=== PATIENT | female | born 1940 | race Caucasian/White ===

== ENCOUNTER 2018-11-03 18:56 | Emergency (ER) | payer OTHER ==
--- NOTE | 2018-11-03 20:20 | RAD REPORT ---
EXAM DESCRIPTION: RAD - Foot Left 3 View - 11/03/2018 8:07 pm CLINICAL HISTORY: Pain;Numbness/tingling COMPARISON: No comparisons FINDINGS: No fractures appreciated. Prominent posterior calcaneal spur.
--- NOTE | 2018-11-03 20:37 | EDPHYS ---
Physician Documentation [facility] Name: Beth López Age: 77 yrs Sex: Female : 1940 Arrival Date: 11/03/2018 Time: 18:59 Bed 5 Private MD: ED Physician Anirudh Dee HPI: 11/03 19:35 This 77 yrs old Female presents to ER via Wheelchair with complaints of Foot rn Injury. 19:35 The patient presents with an injury, pain. The complaints affect the left foot. Onset: rn The symptoms/episode began/occurred just prior to arrival. Modifying factors: The symptoms are alleviated by nothing, the symptoms are aggravated by nothing. Severity of symptoms: At their worst the symptoms were mild, in the emergency department the symptoms are unchanged. The patient has not experienced similar symptoms in the past. The patient has not recently seen a physician. Reports using wheelbarrow, tipped over, wearing sandals, landed on left foot, no other injury, + mild numbness/tingling/pressure to midfoot and toes.. Historical: - Allergies: 19:19 No Known Allergies; ak1 - Home Meds: 19:19 Lisinopril 12.5mg Oral 1 tab once daily [Active]; aspirin 81 mg Oral TbEC [Active]; ak1 pantoprazole 40 mg oral TbEC 1 tab once daily [Active]; atorvastatin 10 mg oral tab 1 tab once daily [Active]; - PMHx: 19:19 Hyperlipidemia; Hypertension; ak1 - PSHx: 19:19 Appendectomy; Cholecystectomy; Hernia repair; Knee surgery; ak1 - Immunization history:: Adult Immunizations unknown. - Social history:: Smoking status: Patient/guardian denies using tobacco. - Ebola Screening: : No symptoms or risks identified at this time. - Family history:: not pertinent. - Hospitalizations: : No recent hospitalization is reported. ROS: 19:35 Constitutional: Negative for fever, chills, and weight loss, MS/Extremity: + injury and rn pain to left foot Skin: + bruising to left foot Neuro: + tingling let foot Exam: 19:35 Constitutional: This is a well developed, well nourished patient who is awake, alert, rn and in no acute distress. Skin: + ecchymosis, linear, acroos left dorsal mid-foot MS/ Extremity: Pulses equal, no cyanosis. Able to wiggle toes, + mild mid-foot swelling. No tenderness at ankle or proximally. Vital Signs: 19:16 BP 134 / 75; Pulse 73; Resp 18; Temp 98; Pulse Ox 97% on R/A; Weight 79.38 kg (R); ak1 Height 5 ft. 7 in. (170.18 cm) (R); Pain 0/10; 20:45 BP 131 / 77; Pulse 75; Resp 17 S; Pulse Ox 97% on R/A; cc3 19:16 Body Mass Index 27.41 (79.38 kg, 170.18 cm) ak1 MDM: 19:23 Patient medically screened. rn 20:35 Differential diagnosis: fracture, sprain. Data reviewed: vital signs, nurses notes, rn radiologic studies, plain films, and as a result, I will discharge patient. Counseling: I had a detailed discussion with the patient and/or guardian regarding: the historical points, exam findings, and any diagnostic results supporting the discharge/admit diagnosis, radiology results, the need for outpatient follow up, to return to the emergency department if symptoms worsen or persist or if there are any questions or concerns that arise at home. Special discussion: I discussed with the patient/guardian in detail that at this point there is no indication for admission to the hospital. It is understood, however, that if the symptoms persist or worsen the patient needs to return immediately for re-evaluation. 11/03 19:26 Order name: XRAY Foot LEFT 3 View; Complete Time: 20:21 rn Administered Medications: No medications were administered Disposition: 11/03/18 20:36 Discharged to Home. Impression: Contusion of left foot. - Condition is Stable. - Discharge Instructions: Foot Contusion. - Medication Reconciliation Form, Thank You Letter, Antibiotic Education, Prescription Opioid Use form. - Follow up: Private Physician; When: As needed; Reason: Recheck today's complaints, Re-evaluation by your physician. - Problem is new. - Symptoms have improved. Signatures: Dispatcher [employer] EDMS Anirudh Dee MD MD rn Krenek, Amber, RN RN ak1 Nica Irby cc3 Corrections: (The following items were deleted from the chart) 21:05 20:36 11/03/2018 20:36 Discharged to Home. Impression: Contusion of left foot. cc3 Condition is Stable. Forms are Medication Reconciliation Form, Thank You Letter, Antibiotic Education, Prescription Opioid Use. Follow up: Private Physician; When: As needed; Reason: Recheck today's complaints, Re-evaluation by your physician. Problem is new. Symptoms have improved. rn
--- NOTE | 2018-11-03 20:37 | ER ---
Nurse's Notes [facility] Name: Beth López Age: 77 yrs Sex: Female : 1940 Arrival Date: 11/03/2018 Time: 18:59 Bed 5 Private MD: Diagnosis: Contusion of left foot Presentation: 11/03 19:16 Presenting complaint: Patient states: left foot numbness. pain after wheelbarrow with ak1 garden soil fell on left foot. Transition of care: patient was not received from another setting of care. Onset of symptoms was November 03, 2018. Risk Assessment: Do you want to hurt yourself or someone else? Patient reports no desire to harm self or others. Initial Sepsis Screen: Does the patient meet any 2 criteria? No. Patient's initial sepsis screen is negative. Does the patient have a suspected source of infection? No. Patient's initial sepsis screen is negative. Care prior to arrival: None. 19:16 Method Of Arrival: Wheelchair ak1 19:16 Acuity: TJ 4 ak1 Triage Assessment: 19:19 General: Appears in no apparent distress. Behavior is calm, cooperative. Pain: ak1 Complains of pain in left foot. 19:26 Musculoskeletal: Range of motion: limited in left foot. Injury Description: Bruise cc3 sustained to left foot. Historical: - Allergies: 19:19 No Known Allergies; ak1 - Home Meds: 19:19 Lisinopril 12.5mg Oral 1 tab once daily [Active]; aspirin 81 mg Oral TbEC [Active]; ak1 pantoprazole 40 mg oral TbEC 1 tab once daily [Active]; atorvastatin 10 mg oral tab 1 tab once daily [Active]; - PMHx: 19:19 Hyperlipidemia; Hypertension; ak1 - PSHx: 19:19 Appendectomy; Cholecystectomy; Hernia repair; Knee surgery; ak1 - Immunization history:: Adult Immunizations unknown. - Social history:: Smoking status: Patient/guardian denies using tobacco. - Ebola Screening: : No symptoms or risks identified at this time. - Family history:: not pertinent. - Hospitalizations: : No recent hospitalization is reported. Screenin:26 Abuse screen: Denies threats or abuse. Denies injuries from another. Nutritional cc3 screening: No deficits noted. Tuberculosis screening: No symptoms or risk factors identified. Fall Risk Ambulatory Aid- None/Bed Rest/Nurse Assist (0 pts). Gait- Normal/Bed Rest/Wheelchair (0 pts) Mental Status- Oriented to own ability (0 pts). Assessment: 19:26 Reassessment: Patient appears in no apparent distress at this time. Patient and/or cc3 family updated on plan of care and expected duration. Pain level reassessed. Patient is alert, oriented x 3, equal unlabored respirations, skin warm/dry/pink. 20:30 Reassessment: Patient appears in no apparent distress at this time. Patient and/or cc3 family updated on plan of care and expected duration. Pain level reassessed. Patient is alert, oriented x 3, equal unlabored respirations, skin warm/dry/pink. 21:00 Reassessment: Patient appears in no apparent distress at this time. Patient and/or cc3 family updated on plan of care and expected duration. Pain level reassessed. Patient is alert, oriented x 3, equal unlabored respirations, skin warm/dry/pink. Dr. Dee discharged the patient home, no prescription given. No IV cannula in situ. Patient left ER vitally stable by wheelchair escorted by me and the patient's family. Vital Signs: 19:16 BP 134 / 75; Pulse 73; Resp 18; Temp 98; Pulse Ox 97% on R/A; Weight 79.38 kg (R); ak1 Height 5 ft. 7 in. (170.18 cm) (R); Pain 0/10; 20:45 BP 131 / 77; Pulse 75; Resp 17 S; Pulse Ox 97% on R/A; cc3 19:16 Body Mass Index 27.41 (79.38 kg, 170.18 cm) ak1 ED Course: 18:59 Patient arrived in ED. as 19:17 Triage completed. ak1 19:19 Arm band placed on Patient placed in an exam room, Patient notified of wait time. ak1 19:22 Anirudh Dee MD is Attending Physician. rn 19:26 Nica Irby is Primary Nurse. cc3 19:26 Patient has correct armband on for positive identification. Bed in low position. Call cc3 light in reach. Side rails up X 1. Pulse ox on. NIBP on. 20:08 XRAY Foot LEFT 3 View In Process Unspecified. EDMS 21:00 No provider procedures requiring assistance completed. Patient did not have IV access cc3 during this emergency room visit. Administered Medications: No medications were administered Outcome: 20:36 Discharge ordered by . rn 21:00 Discharged to home via wheelchair, with family. cc3 21:00 Condition: stable 21:00 Discharge instructions given to patient, family, Instructed on discharge instructions, follow up and referral plans. Demonstrated understanding of instructions, follow-up care. 21:05 Patient left the ED. cc3 Signatures: Dispatcher [employer] EDMS Geraldine Urbano Roman, MD MD rn Krenek, Amber, RN RN ak1 Nica Irby cc3
== END 2018-11-03 21:05 | disposition home or self-care (01) ==
LOC: ER 18:56
DX: S90.32XA Contusion of left foot, initial encounter (principal); W20.8XXA Other cause of strike by thrown, projected or falling object, initial encounter; Y93.H2 Activity, gardening and landscaping; Y92.007 Garden or yard of unspecified non-institutional (private) residence as the place of occurrence of the external cause; I10 Essential (primary) hypertension
CPT/HCPCS: 99283

== ENCOUNTER 2020-03-06 05:24 | Emergency (ER) | payer OTHER ==
--- OUTSIDE RECORDS SUMMARY | 2020-03-06 05:27 | XMS REPORT | Clinical Summary ---
:1940 Author Organization [facility] Address [address] [place] [address] Care Team Providers Name Role Phone Elie Turpin MD Primary Care Provider Allergies No Known Allergies Medications Medication Sig Dispensed Refills Start Date End Date Status lisinopril-hydrochloroth TK 1 T PO QD 1 10/06/2016 Active iazide (PRINZIDE,ZESTORETIC) 20-12.5 mg per tablet atorvastatin (LIPITOR) TK 1 T PO QD 2 10/06/2016 Active 10 MG tablet pantoprazole (PROTONIX) TK 1 T PO QD 3 10/08/2016 Active 40 MG EC tablet meclizine (ANTIVERT) 25 TK 1 T PO TID 1 09/14/2016 Active mg tablet PRN aspirin (ECOTRIN) 81 MG Take 81 mg by 0 Active enteric coated tablet mouth daily. Active Problems No known active problems Family History Medical History Relation Name Comments Cancer Brother Heart attack Brother Heart disease Father Hypertension Mother Relation Name Status Comments Brother Father Alive Mother Alive Social History Tobacco Use Types Packs/Day Years Used Date Never Assessed Sex Assigned at Date Recorded Not on file Job Start Date Occupation Industry Not on file Not on file Not on file Travel History Travel Start Travel End No recent travel history available. 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
[2020-03-06 06:16] LABS: Absolute Lymphocytes (CBC) 0.7 K/uL (0.7-4.9); Basophils % 0.7 % (0-1.3); Hematocrit 37.7 % (36.0-45.0); Lymphocytes % 22.2 % (15.3-44.8); MPV 8.3 fL (7.6-11.3); Protime INR 1.01; RBC Red Blood Cell Count 4.39 M/uL (3.86-4.86)
[2020-03-06 06:44] LABS: ALT/SGPT 22 U/L (12-78); AST/SGOT 35 U/L (15-37); Albumin 3.5 g/dL (3.4-5.0); Alkaline Phosphatase 110 U/L (45-117); BUN Blood Urea Nitrogen 20 mg/dL (7-18); Bicarbonate 22 mmol/L (21-32); Bilirubin Direct 0.1 mg/dL (0-0.2); Bilirubin Total 0.4 mg/dL (0.2-1.0); Glucose Level 107 mg/dL (74-106); Magnesium 1.8 mg/dL (1.8-2.4); NT PRO-BNP 348 pg/mL (<450); Protein, Total 7.7 g/dL (6.4-8.2); Sodium Level 143 mmol/L (136-145); Troponin (Emerg Dept Use Only) < 0.02 ng/mL (0.0-0.045)
[2020-03-06 06:51] LABS: Potassium 2.9 mmol/L (3.5-5.1)
[2020-03-06] MEDS ORDERED: POTASSIUM CL SA 10 MEQ TAB PO ONE (07:12)
[2020-03-06] MEDS ORDERED: NA CHLORIDE 0.9% 1,000 ML ONE (07:12)
--- NOTE | 2020-03-06 10:17 | ER ---
Nurse's Notes [facility] Name: Beth López Age: 79 yrs Sex: Female : 1940 Arrival Date: 03/06/2020 Time: 05:25 Bed 7 Private MD: Diagnosis: Dehydration;Hypokalemia;Palpitations;Acute upper respiratory infection, unspecified Presentation: 03/06 05:39 Chief complaint: Patient states: i was tested for COVID last Saturday at [place] and mg2 not resulted yet. I was having fever, palpitation for few seconds, cough and shortness of breath. i also got lightheaded yesterday. Coronavirus screen: Patient reports a cough. Patient reports shortness of breath or difficulty breathing. Patient reports a measured and/or subjective temperature greater than 100.4F. Patient denies travel on a cruise ship or to a country the [facility] currently lists as an affected area. Patient denies contact with known and/or suspected case of COVID-19. Patient instructed to continue to wear a mask when interacting with others. Patient moved to private room, placed in contact and droplet isolation with eye protection until further assessment. Ebola Screen: No symptoms or risks identified at this time. Initial Sepsis Screen: Does the patient meet any 2 criteria? No. Patient's initial sepsis screen is negative. Does the patient have a suspected source of infection? No. Patient's initial sepsis screen is negative. Risk Assessment: Do you want to hurt yourself or someone else? Patient reports no desire to harm self or others. Onset of symptoms was February 2020. 05:39 Method Of Arrival: Wheelchair mg2 05:39 Acuity: TJ 3 mg2 05:40 Ebola Screen: No symptoms or risks identified at this time. ea 05:41 Initial Sepsis Screen: Does the patient have a suspected source of infection?. ea Historical: - Allergies: 05:43 No Known Allergies; mg2 - Home Meds: 05:43 aspirin 81 mg Oral TbEC [Active]; atorvastatin 10 mg Oral tab 1 tab once daily mg2 [Active]; Lisinopril 12.5MG Oral 1 tab once daily [Active]; pantoprazole 40 mg Oral TbEC 1 tab once daily [Active]; - PMHx: 05:43 Hyperlipidemia; Hypertension; GERD; mg2 - Immunization history:: Adult Immunizations up to date. - Social history:: Smoking status: Patient denies any tobacco usage or history of. Screenin:40 Abuse screen: Denies threats or abuse. Nutritional screening: No deficits noted. ea Tuberculosis screening: No symptoms or risk factors identified. Fall Risk None identified. Assessment: 05:39 General: Appears in no apparent distress. Behavior is cooperative. Pain: Denies pain. ea Neuro: Level of Consciousness is awake, alert, obeys commands, Oriented to person, place, time, situation. Cardiovascular: Patient's skin is warm and dry. Respiratory: Airway is patent Respiratory effort is even, unlabored, Respiratory pattern is regular, symmetrical. Derm: Skin is pink, warm \T\ dry. Musculoskeletal: Circulation, motion, and sensation intact. 06:22 Reassessment: Patient and/or family updated on plan of care and expected duration. Pain ea level reassessed. Patient is alert, oriented x 3, equal unlabored respirations, skin warm/dry/pink. 07:00 Reassessment: RECD REPORT FROM LEANNE PEREZ. 79YO WF P/W PALPITATIONS AND R/O COVID. ALL bp CURRENT ORDERS COMPLETE. 07:31 Reassessment: Patient appears in no apparent distress at this time. Patient and/or jl7 family updated on plan of care and expected duration. Pain level reassessed. Patient is alert, oriented x 3, equal unlabored respirations, skin warm/dry/pink. Patient denies pain at this time. Patient states feeling better. Patient states symptoms have improved. 08:30 Reassessment: Patient appears in no apparent distress at this time. No changes from 7 previously documented assessment. Patient and/or family updated on plan of care and expected duration. Pain level reassessed. Patient is alert, oriented x 3, equal unlabored respirations, skin warm/dry/pink. 09:30 Reassessment: Patient appears in no apparent distress at this time. No changes from jl7 previously documented assessment. Patient and/or family updated on plan of care and expected duration. Pain level reassessed. Patient is alert, oriented x 3, equal unlabored respirations, skin warm/dry/pink. Vital Signs: 05:39 BP 144 / 98; Pulse 91; Resp 18; Temp 98; Pulse Ox 96% on R/A; Weight 81.65 kg; Height 5 mg2 ft. 7 in. (170.18 cm); 06:22 BP 114 / 73; Pulse 77; Resp 18; Pulse Ox 92% ; ea 07:30 BP 108 / 64; Pulse 67; Resp 17; Pulse Ox 97% ; jl7 08:15 BP 111 / 65; Pulse 67; Resp 15; Pulse Ox 100% ; jl7 09:00 BP 111 / 60; Pulse 61; Resp 16; Pulse Ox 99% ; jl7 10:02 BP 118 / 64; Pulse 61; Resp 15; Pulse Ox 100% ; jl7 05:39 Body Mass Index 28.19 (81.65 kg, 170.18 cm) mg2 ED Course: 05:25 Patient arrived in ED. ds1 05:39 Christopher Menchaca, RN is Primary Nurse. mg2 05:40 Patient has correct armband on for positive identification. Placed in gown. Bed in low ea position. Call light in reach. Side rails up X2. school lunch monitor on. Pulse ox on. NIBP on. 05:41 Triage completed. mg2 05:41 Arm band placed on right wrist. Patient placed in an exam room, on a stretcher, on ea pulse oximetry. 05:42 No provider procedures requiring assistance completed. mg2 06:01 Rome Sol NP is PHCP. pm1 06:01 Donald Baptiste MD is Attending Physician. pm1 06:32 XRAY Chest (1 view) In Process Unspecified. EDMS 06:51 Notified Nurse Practitioner and/or Physician Termite Exterminator Helper of a critical lab result(s), K lp1 2.9. 07:23 Primary Nurse role handed off by Christopher Menchaca RN jl7 07:23 Venu Gonzalez RN is Primary Nurse. jl7 07:23 Report received from ANA White. jl7 10:27 IV discontinued, intact, bleeding controlled, No redness/swelling at site. Pressure jl7 dressing applied. Administered Medications: 07:06 Drug: NS 0.9% 1000 ml Route: IV; Rate: 1000 ml; Site: right antecubital; ea 07:06 Drug: Potassium Chloride 40 mEq Route: PO; ea 07:21 Follow up: Response: No adverse reaction jl7 07:10 CANCELLED (Physician Discretion): Potassium Chloride 10 mEq IV at calculated rate once; pm1 administer over 1-2 hours 07:15 Drug: Potassium Chloride 20 mEq Route: IV; Rate: calculated rate; Site: right [facility] antecubital; Outcome: 10:16 Discharge ordered by . pm1 10:27 Discharged to home ambulatory. jl7 10:27 Condition: stable 10:27 Discharge instructions given to patient, Instructed on discharge instructions, follow up and referral plans. Demonstrated understanding of instructions, follow-up care. 10:28 Patient left the ED. jl7 Signatures: Dispatcher [employer] EDCT Sommer Gutierrez ds1 Maira Lua RN RN lp1 Rome Sol, ROSITA KITCHENHAND pm1 Venu Gonzalez RN RN jl7 Myla Conley RN RN ea Peltier, Brian, RN RN Christopher Mcknight RN RN mg2
--- NOTE | 2020-03-06 10:17 | EDPHYS ---
Physician Documentation [facility] Name: Beth López Age: 79 yrs Sex: Female : 1940 Arrival Date: 03/06/2020 Time: 05:25 Bed 7 Private MD: ED Physician Donald Baptiste HPI: 03/06 06:28 This 79 yrs old Female presents to ER via Wheelchair with complaints of R/O pm1 Covid. 06:28 The patient presents with a history of heart racing. Context: The symptoms occur at pm1 rest. Onset: The symptoms/episode began/occurred 3 day(s) ago. Duration: The patient or guardian reports a single episode, that lasted 1 minute(s). Modifying factors: The symptoms are aggravated by nothing. The symptoms are alleviated by nothing. Associated signs and symptoms: Pertinent positives: cough, fever, SOB, Pertinent negatives: chest pain, nausea, vomiting, diarrhea. Severity of symptoms: in the emergency department the symptoms have improved Pain is currently a 0 / 10. Patient presents today with complaints of cough, fever, palpitations, and shortness of breath. Cough and fever started 3 days ago. Palpitations and shortness of breath onset yesterday that lasted for 1 minute. She got swabbed for covid-19 from [place] on Saturday and is pending results. Historical: - Allergies: 05:43 No Known Allergies; mg2 - Home Meds: 05:43 aspirin 81 mg Oral TbEC [Active]; atorvastatin 10 mg Oral tab 1 tab once daily mg2 [Active]; Lisinopril 12.5MG Oral 1 tab once daily [Active]; pantoprazole 40 mg Oral TbEC 1 tab once daily [Active]; - PMHx: 05:43 Hyperlipidemia; Hypertension; GERD; mg2 - Immunization history:: Adult Immunizations up to date. - Social history:: Smoking status: Patient denies any tobacco usage or history of. ROS: 06:28 Constitutional: Negative for fever, chills, and weight loss, ENT: Negative for injury, pm1 pain, and discharge, Neck: Negative for injury, pain, and swelling. 06:28 Abdomen/GI: Negative for abdominal pain, nausea, vomiting, diarrhea, and constipation, Back: Negative for injury and pain, MS/Extremity: Negative for injury and deformity, Skin: Negative for injury, rash, and discoloration, Neuro: Negative for headache, weakness, numbness, tingling, and seizure. 06:28 Cardiovascular: Positive for palpitations, Negative for chest pain, edema. 06:28 Respiratory: Positive for cough, shortness of breath. 06:28 All other systems are negative. Exam: 06:28 Constitutional: This is a well developed, well nourished patient who is awake, alert, pm1 and in no acute distress. Head/Face: Normocephalic, atraumatic. Chest/axilla: Normal chest wall appearance and motion. Nontender with no deformity. No lesions are appreciated. 06:28 Back: No spinal tenderness. No costovertebral tenderness. Full range of motion. Skin: Warm, dry with normal turgor. Normal color with no rashes, no lesions, and no evidence of cellulitis. MS/ Extremity: Pulses equal, no cyanosis. Neurovascular intact. Full, normal range of motion. 06:28 Cardiovascular: Exam negative for acute changes, Rate: normal, Rhythm: regular, Pulses: no pulse deficits are appreciated. 06:28 Respiratory: Exam negative for acute changes, respiratory distress, shortness of breath, wheezing. 06:28 Abdomen/GI: Exam negative for acute changes, Inspection: abdomen appears normal, Palpation: abdomen is soft and non-tender, in all quadrants. 06:28 Neuro: Exam negative for acute changes, Orientation: is normal, Mentation: is normal, Motor: is normal, moves all fours. Vital Signs: 05:39 BP 144 / 98; Pulse 91; Resp 18; Temp 98; Pulse Ox 96% on R/A; Weight 81.65 kg; Height 5 mg2 ft. 7 in. (170.18 cm); 06:22 BP 114 / 73; Pulse 77; Resp 18; Pulse Ox 92% ; ea 07:30 BP 108 / 64; Pulse 67; Resp 17; Pulse Ox 97% ; jl7 08:15 BP 111 / 65; Pulse 67; Resp 15; Pulse Ox 100% ; jl7 09:00 BP 111 / 60; Pulse 61; Resp 16; Pulse Ox 99% ; jl7 10:02 BP 118 / 64; Pulse 61; Resp 15; Pulse Ox 100% ; jl7 05:39 Body Mass Index 28.19 (81.65 kg, 170.18 cm) mg2 MDM: 06:03 Patient medically screened. pm1 06:56 Data reviewed: vital signs. pm1 10:03 Counseling: I had a detailed discussion with the patient and/or guardian regarding: the pm1 historical points, exam findings, and any diagnostic results supporting the discharge/admit diagnosis, lab results, radiology results, the need for outpatient follow up, to return to the emergency department if symptoms worsen or persist or if there are any questions or concerns that arise at home. 03/06 05:46 Order name: Basic Metabolic Panel; Complete Time: 06:54 03/06 05:46 Order name: CBC with Diff; Complete Time: 06:33 03/06 05:46 Order name: LFT's; Complete Time: 06:54 03/06 05:46 Order name: Magnesium; Complete Time: 06:54 03/06 05:46 Order name: NT PRO-BNP; Complete Time: 06:54 03/06 05:46 Order name: PT-INR; Complete Time: 06:33 03/06 05:46 Order name: Troponin (emerg Dept Use Only); Complete Time: 06:54 03/06 05:46 Order name: XRAY Chest (1 view); Complete Time: 10:45 03/06 05:46 Order name: EKG; Complete Time: 05:47 03/06 05:57 Order name: Blood Culture* 4 03/06 05:46 Order name: Cardiac monitoring; Complete Time: 05:57 03/06 05:46 Order name: EKG - Nurse/Tech; Complete Time: 05:57 03/06 05:46 Order name: IV Saline Lock; Complete Time: 05:58 03/06 05:46 Order name: Labs collected and sent; Complete Time: 05:58 03/06 05:46 Order name: O2 Per Protocol; Complete Time: 05:53 03/06 05:46 Order name: O2 Sat Monitoring; Complete Time: 05:53 4 Administered Medications: 07:06 Drug: NS 0.9% 1000 ml Route: IV; Rate: 1000 ml; Site: right antecubital; ea 07:06 Drug: Potassium Chloride 40 mEq Route: PO; ea 07:21 Follow up: Response: No adverse reaction jl7 07:10 CANCELLED (Physician Discretion): Potassium Chloride 10 mEq IV at calculated rate once; pm1 administer over 1-2 hours 07:15 Drug: Potassium Chloride 20 mEq Route: IV; Rate: calculated rate; Site: right jl7 antecubital; Disposition: 03/07 06:05 Co-signature as Attending Physician, Donald Baptiste MD I agree with the assessment and tw4 plan of care. Disposition: 03/06/20 10:16 Discharged to Home. Impression: Palpitations, Dehydration, Hypokalemia, Acute upper respiratory infection, unspecified. - Condition is Stable. - Discharge Instructions: Dehydration, Elderly, Potassium Content of Foods, Palpitations, Hypokalemia, Rehydration, Elderly. - Medication Reconciliation Form, Thank You Letter, Antibiotic Education, Prescription Opioid Use form. - Follow up: Emergency Department; When: As needed; Reason: Worsening of condition. Follow up: Private Physician; When: 2 - 3 days; Reason: Recheck today's complaints, Continuance of care, Re-evaluation by your physician. - Problem is new. - Symptoms have improved. Signatures: Dispatcher [employer] EDMS [place] Sol, ROSITA TWENTY ONE DEALER pm1 Venu Gonzalez RN RN jl7 Myla Conley RN RN ea Wadley, Terrence, MD MD tw4 Christopher Menchaca RN RN mg2 Corrections: (The following items were deleted from the chart) 03/06 07:10 07:10 Potassium Chloride 10 mEq IV at calculated rate once; administer over 1-2 hours pm1 ordered. pm1 10:17 10:16 03/06/2020 10:16 Discharged to Home. Impression: Dehydration; Hypokalemia. pm1 Condition is Stable. Forms are Medication Reconciliation Form, Thank You Letter, Antibiotic Education, Prescription Opioid Use. Follow up: Emergency Department; When: As needed; Reason: Worsening of condition. Follow up: Private Physician; When: 2 - 3 days; Reason: Recheck today's complaints, Continuance of care, Re-evaluation by your physician. Problem is new. Symptoms have improved. pm1 10:28 10:17 03/06/2020 10:16 Discharged to Home. Impression: PalpitationsDehydration; jl7 Hypokalemia; Acute upper respiratory infection, unspecified. Condition is Stable. Discharge Instructions: Dehydration, Elderly, Potassium Content of Foods, Hypokalemia, Rehydration, Elderly. Forms are Medication Reconciliation Form, Thank You Letter, Antibiotic Education, Prescription Opioid Use. Follow up: Emergency Department; When: As needed; Reason: Worsening of condition. Follow up: Private Physician; When: 2 - 3 days; Reason: Recheck today's complaints, Continuance of care, Re-evaluation by your physician. Problem is new. Symptoms have improved. pm1
--- NOTE | 2020-03-06 10:35 | RAD REPORT ---
EXAM DESCRIPTION: Nicola Single View03/06/2020 6:31 am CLINICAL HISTORY: Chest pain COMPARISON: none FINDINGS: The lungs appear clear of acute infiltrate. The heart is normal size IMPRESSION: No acute abnormalities displayed
[2020-03-06 10:38] VITALS: TEMP 98
[2020-03-06 10:52] VITALS: BP 118/64; O2SAT 100
--- NOTE | 2020-03-07 05:58 | EKG ---
Test Date: 2020-03-06 Test Time: 05:54:03 Drafter Seismograph: MEASUREMENT RESULTS: Intervals: Rate: 71 [place]: 150 QRSD: 82 QT: 406 QTc: 441 [place]: P: 49 [place]: 150 QRS: 100 T: 79 INTERPRETIVE STATEMENTS: Normal sinus rhythm Rightward axis Cannot rule out Anterior infarct, age undetermined Abnormal ECG No previous ECG available for comparison Electronically Signed On 03-07-20 05:57:08 CDT by Robert Aguila
== END 2020-03-06 10:28 | disposition home or self-care (01) ==
LOC: ER 05:24
DX: E86.0 Dehydration (principal); J06.9 Acute upper respiratory infection, unspecified; E87.6 Hypokalemia; I10 Essential (primary) hypertension; E78.5 Hyperlipidemia, unspecified; Z79.82 Long term (current) use of aspirin
CPT/HCPCS: 93005; 87040 ×2; 85025; 80048; 36415; 83735; 85610; 80076; 84484; 83880; 71045; 96374; 99284; J7030

== ENCOUNTER 2020-03-11 10:53 | Inpatient (IN) | payer OTHER ==
--- OUTSIDE RECORDS SUMMARY | 2020-03-11 11:13 | XMS REPORT | Clinical Summary ---
:1940 Author Organization [facility] Address [address] [place] [address] Care Team Providers Name Role Phone Elie [...] INFLUENZA VACCINE 03/12/2020 Results Not on fileafter 03/11/2019 Advance Directives For more information, please contact: [phone] Type Date Recorded Patient Bond Manager Explanati on Advance Directives, Living Will and Medical Power of Consumer Advocate
[2020-03-11] MEDS ORDERED: NA CHLORIDE 0.9% 1,000 ML ONE (11:37)
[2020-03-11] MEDS ORDERED: dexAMETHasone 10 MG/ML VIAL ONE (11:37)
[2020-03-11] MEDS ORDERED: FAMOTIDINE 20 MG/2 ML VIAL IV ONE (11:37)
[2020-03-11] MEDS ORDERED: ONDANSETRON 4 MG/2 ML VIAL ONE ×2 (11:37→13:17)
[2020-03-11] MEDS ORDERED: CEFTRIAXONE/SWI 1gm 1 GM/10 ML SYR ONE (11:38)
[2020-03-11 12:02] LABS: Absolute Lymphocytes (CBC) 0.5 K/uL (0.7-4.9); Basophils % 2.2 % (0-1.3); Hematocrit 37.1 % (36.0-45.0); MPV 8.7 fL (7.6-11.3); RBC Red Blood Cell Count 4.28 M/uL (3.86-4.86)
[2020-03-11 12:32] LABS: ALT/SGPT 23 U/L (12-78); Albumin 2.9 g/dL (3.4-5.0); Alkaline Phosphatase 97 U/L (45-117); BUN Blood Urea Nitrogen 25 mg/dL (7-18); Bicarbonate 24 mmol/L (21-32); Bilirubin Direct 0.2 mg/dL (0-0.2); Bilirubin Total 0.6 mg/dL (0.2-1.0); Glucose Level 115 mg/dL (74-106); Lipase 170 U/L (73-393); NT PRO-BNP 214 pg/mL (<450); Protein, Total 7.2 g/dL (6.4-8.2); Sodium Level 141 mmol/L (136-145); Troponin (Emerg Dept Use Only) < 0.02 ng/mL (0.0-0.045)
[2020-03-11 12:37] LABS: AST/SGOT 42 U/L (15-37); Magnesium 1.6 mg/dL (1.8-2.4); Potassium 3.1 mmol/L (3.5-5.1)
[2020-03-11] MEDS ORDERED: AZITHROMYCIN IV 500 MG in NA CHLORIDE 0.9% 250 ML IVPB ONE (12:45)
--- NOTE | 2020-03-11 12:49 | RAD REPORT ---
EXAM DESCRIPTION: CT - Chest Abd Pelvis Wo Con - 03/11/2020 12:16 pm CLINICAL HISTORY: Abdominal distention;Dissection;PE;SOB, positive COVID test March 02 COMPARISON: No comparisons TECHNIQUE: During dynamic enhancement using 100 milliliters nonionic IV contrast, axial 5 millimeter thick images of the chest, abdomen and pelvis were obtained. Biphasic technique was utilized through the abdomen. Oral contrast was administered. All CT scans are performed using dose optimization technique as appropriate and may include automated exposure control or mA/KV adjustment according to patient size. FINDINGS: Scattered ground-glass opacification present in the lung starr. This is a well described COVID-19 pneumonia pattern matches the history. This is seen is mild, bordering on moderate, severity disease. No dense consolidation or mass. No pneumothorax or pleural effusion. No chest wall mass or abnormal axillary lymphadenopathy seen. Mediastinal and hilar regions show no mass or lymphadenopat hy. No significant cardiac finding. The liver, spleen and pancreas show no significant findings. Gallbladder is absent or very tightly c ontracted. No cholecystectomy clips are seen. There is no biliary tree dilatation. Renal function cannot be assessed. There is cortical thinning in each kidney. No hydronephrosis or gr oss mass abnormality. Isodense masses and pyelonephritis cannot be excluded. No adrenal abnormalities . No urinary bladder abnormalities. No uterine abnormality. Ovaries are atrophic. No adnexal mass i dentified. Patient has a small hiatal hernia. No stomach abnormality. Large and small bowel show no acute findin gs. The colon is decompressed with little stool volume. Diverticulosis is minimal. No diverticulitis. No free air, free fluid or inflammatory stranding. No mass or bulky lymphadenopathy. A small suprau mbilical ventral hernia is seen in the mid abdomen. Diameter the hernia is approximately 3 cm with a 10 centimeter neck. This is only fatty tissue with no congestion or edema. Disc and bony degenerative changes are present. Degenerative gas is present in L2-3, L3-4 and L4-5. N o pathologic or aggressive bone process. IMPRESSION: Bilateral ground-glass opacification pattern in the lung starr. This [id number] severe finding is a well described COVID-[address] No acute CT abdomen and pelvis findings. The patient has a fat only supraumbilical ventral hernia wit h no evidence for an active process.
--- NOTE | 2020-03-11 13:03 | EDPHYS ---
Physician Documentation [facility] Name: Beth López Age: 79 yrs Sex: Female : 1940 Arrival Date: 03/11/2020 Time: 10:55 Bed 8 Private MD: ED Physician Quinn Walker HPI: 03/11 11:25 This 79 yrs old Female presents to ER via Wheelchair with complaints of COVID pati +, Abdominal Pain, Nausea, Shortness Of Breath. 11:25 The patient presents to the emergency department with nausea, vomiting. pati Historical: - Allergies: 10:59 No Known Allergies; hb - Home Meds: 10:59 aspirin 81 mg Oral TbEC [Active]; atorvastatin 10 mg Oral tab 1 tab once daily hb [Active]; Lisinopril 12.5MG Oral 1 tab once daily [Active]; pantoprazole 40 mg Oral TbEC 1 tab once daily [Active]; - PMHx: 10:59 GERD; Hyperlipidemia; Hypertension; hb - Immunization history:: Adult Immunizations up to date. - Social history:: Smoking status: Patient denies any tobacco usage or history of. - Family history:: not pertinent. ROS: 11:25 Eyes: Negative for injury, pain, redness, and discharge, ENT: Negative for injury, pati pain, and discharge, Neck: Negative for injury, pain, and swelling, Cardiovascular: Negative for chest pain, palpitations, and edema, Back: Negative for injury and pain, : Negative for injury, bleeding, discharge, and swelling, MS/Extremity: Negative for injury and deformity, Skin: Negative for injury, rash, and discoloration, Psych: Negative for depression, anxiety, suicide ideation, homicidal ideation, and hallucinations, Allergy/Immunology: Negative for hives, rash, and allergies, Endocrine: Negative for neck swelling, polydipsia, polyuria, polyphagia, and marked weight changes, Hematologic/Lymphatic: Negative for swollen nodes, abnormal bleeding, and unusual bruising. 11:25 Constitutional: Positive for body aches, chills, fatigue, fever, malaise, poor PO intake. 11:25 Respiratory: Positive for cough, shortness of breath, at rest. 11:25 Abdomen/GI: Positive for abdominal pain, nausea and vomiting, abdominal cramps, of the right upper quadrant and left upper quadrant. Exam: 11:25 Head/Face: Normocephalic, atraumatic. Eyes: Pupils equal round and reactive to light, pati extra-ocular motions intact. Lids and lashes normal. Conjunctiva and sclera are non-icteric and not injected. Cornea within normal limits. Periorbital areas with no swelling, redness, or edema. ENT: Nares patent. No nasal discharge, no septal abnormalities noted. Tympanic membranes are normal and external auditory canals are clear. Oropharynx with no redness, swelling, or masses, exudates, or evidence of obstruction, uvula midline. Mucous membranes moist. Neck: Trachea midline, no thyromegaly or masses palpated, and no cervical lymphadenopathy. Supple, full range of motion without nuchal rigidity, or vertebral point tenderness. No Meningismus. Chest/axilla: Normal chest wall appearance and motion. Nontender with no deformity. No lesions are appreciated. Cardiovascular: Regular rate and rhythm with a normal S1 and S2. No gallops, murmurs, or rubs. Normal PMI, no JVD. No pulse deficits. Back: No spinal tenderness. No costovertebral tenderness. Full range of motion. Female : Normal external genitalia. Skin: Warm, dry with normal turgor. Normal color with no rashes, no lesions, and no evidence of cellulitis. MS/ Extremity: Pulses equal, no cyanosis. Neurovascular intact. Full, normal range of motion. Psych: Awake, alert, with orientation to person, place and time. Behavior, mood, and affect are within normal limits. 11:25 Constitutional: The patient appears in obvious distress, mildly distressed, moderately distressed, obviously ill, uncomfortable. 11:25 Respiratory: the patient does not display signs of respiratory distress, Respirations: labored breathing, that is mild, Breath sounds: decreased breath sounds, that are mild, are scattered, rhonchi, that are moderate, are scattered, stridor, is not appreciated, + upper airway congestion. Respiratory rate: 28 11:25 Abdomen/GI: Inspection: abdomen appears normal, Bowel sounds: normal, Palpation: moderate abdominal tenderness, in the right upper quadrant and left upper quadrant, Liver: no appreciated palpable abnormalities, Hernia: not appreciated. 11:25 Musculoskeletal/extremity: DVT Exam: No signs of deep vein thrombosis. no pain, no swelling, no tenderness, negative Homans' sign noted on exam, no appreciated bluish discoloration, no erythema, no increased warmth. 12:18 ECG was reviewed by the Attending Physician. [facility] Vital Signs: 10:56 BP 96 / 73; Pulse 89; Resp 28; Temp 99(TE); Pulse Ox 95% on R/A; Weight 77.11 kg; hb Height 5 ft. 7 in. (170.18 cm); Pain 9/10; 12:51 BP 122 / 60; Pulse 67; Resp 18 S; Pulse Ox 93% on R/A; iw 10:56 Body Mass Index 26.63 (77.11 kg, 170.18 cm) hb MDM: 11:00 Patient medically screened. [facility] 11:28 Data reviewed: vital signs, nurses notes, lab test result(s), EKG, radiologic studies, [facility] CT scan, plain films. 03/11 11:23 Order name: Basic Metabolic Panel; Complete Time: 12:50 [facility] 03/11 11:23 Order name: CBC with Diff; Complete Time: 12:08 [facility] 03/11 11:23 Order name: LFT's; Complete Time: 12:50 [facility] 03/11 11:23 Order name: Magnesium; Complete Time: 12:50 [facility] 03/11 11:23 Order name: NT PRO-BNP; Complete Time: 12:50 [facility] 03/11 11:23 Order name: Troponin (emerg Dept Use Only); Complete Time: 12:50 [facility] 03/11 11:23 Order name: XRAY Chest (1 view) [facility] 03/11 11:23 Order name: Lipase; Complete Time: 12:50 [facility] 03/11 11:23 Order name: Blood Culture Adult (2) [facility] 03/11 12:16 Order name: Chest Abd Pelvis Wo Con [facility] 03/11 12:27 Order name: CREATININE WHOLE BLOOD; Complete Time: 12:50 [facility] 03/11 15:17 Order name: C-Reactive Protein [facility] 03/11 15:17 Order name: Ferritin [facility] 03/11 11:23 Order name: EKG; Complete Time: 11:23 [facility] 03/11 11:23 Order name: Cardiac monitoring; Complete Time: 12:03 [facility] 03/11 11:23 Order name: EKG - Nurse/Tech; Complete Time: 12:03 [facility] 03/11 11:23 Order name: IV Saline Lock; Complete Time: 12:03 [facility] 03/11 11:23 Order name: Labs collected and sent; Complete Time: 12: [facility] 03/11 11:23 Order name: O2 Per Protocol; Complete Time: 12: [facility] 03/11 11:23 Order name: O2 Sat Monitoring; Complete Time: 12: [facility] EC:18 Rate is 67 beats/min. Rhythm is regular. QRS Ider is Normal. ND interval is normal. QRS pati interval is normal. QT interval is normal. No Q waves. T waves are Normal. No ST changes noted. Clinical impression: NSR w/ Non-specific ST/T Changes and No evidence of ischemia. Interpreted by me. Reviewed by me. Administered Medications: 11:45 Drug: NS 0.9% 500 ml Route: IV; Rate: bolus; Site: right antecubital; iw 11:45 Drug: Decadron - Dexamethasone 6 mg Route: IVP; Site: right antecubital; iw 11:48 Drug: Pepcid 20 mg Route: IVP; Site: right antecubital; iw 11:50 Drug: Zofran (Ondansetron) 4 mg Route: IVP; Site: right antecubital; iw 12:02 Drug: Rocephin 1 grams Route: IV; Rate: per protocol; Site: right antecubital; iw 13:22 Drug: Thiamine 200 mg Route: IV; Rate: per protocol; Site: right antecubital; iw 13:23 Drug: Zithromax 500 mg Route: IVPB; Infused Over: 1 hrs; Site: right antecubital; iw 13:23 Drug: NS 0.9% 500 ml Route: IV; Rate: bolus; Site: right antecubital; iw 14:00 Drug: Potassium Effervescent Tablet 25 mEq Route: PO; iw 15:00 Drug: Magnesium Sulfate 2 grams Route: IVPB; Infused Over: 2 hrs; Site: right iw antecubital; Disposition: 03/11/20 13:03 Hospitalization ordered by Boogie Roldan for Inpatient Admission. Preliminary diagnosis are Acute kidney failure, SARS-associated coronavirus as the cause of diseases classified elsewhere, Hypoxemia, Hypokalemia, Hypomagnesemia, Pneumonia due to other specified bacteria - bilateral, multifocal. - Bed requested for Intensive Care Unit. - Status is Inpatient Admission. iw - Condition is Fair. - Problem is new. - Symptoms have improved. Signatures: Dispatcher [employer] EDNY Quinn Walker MD MD cha Williams, Irene, RN RN iw Aida Ware RN RN Joslyn Rojas Corrections: (The following items were deleted from the chart) 12:16 11:23 Angio Aorta For Dissection+CT.RAD.BRZ ordered. EDNY EDNY 14:40 13:03 Hospitalization Ordered by Boogie Roldan MD for Inpatient Admission. Preliminary eb diagnosis is Acute kidney failure; SARS-associated coronavirus as the cause of diseases classified elsewhere; Hypoxemia; Hypokalemia; Hypomagnesemia; Pneumonia due to other specified bacteria - bilateral, multifocal. Bed requested for Telemetry/MedSurg (Inpatient). Status is Inpatient Admission. Condition is Fair. Problem is new. Symptoms have improved. [facility] 16:11 14:40 03/11/2020 13:03 Hospitalization Ordered by Boogie Roldan MD for Inpatient iw Admission. Preliminary diagnosis is Acute kidney failure; SARS-associated coronavirus as the cause of diseases classified elsewhere; Hypoxemia; Hypokalemia; Hypomagnesemia; Pneumonia due to other specified bacteria - bilateral, multifocal. Bed requested for Intensive Care Unit. Status is Inpatient Admission. Condition is Fair. Problem is new. Symptoms have improved. eb
--- NOTE | 2020-03-11 13:03 | ER ---
Nurse's Notes [facility] Name: Beth López Age: 79 yrs Sex: Female : 1940 Arrival Date: 03/11/2020 Time: 10:55 Bed 8 Private MD: Diagnosis: Acute kidney failure;SARS-associated coronavirus as the cause of diseases classified elsewhere;Hypoxemia;Hypokalemia;Hypomagnesemia;Pneumonia due to other specified bacteria-bilateral, multifocal Presentation: 03/11 10:56 Chief complaint: SOB, productive cough, nausea, diarrhea, and chills x 10 days, tested hb positive for COVID on 03/02. Reports worsening SOB and new onset upper abdominal pain since yesterday. Coronavirus screen: Client reports previous positive COVID test result. Date of collection: March 02, 2020. Ebola Screen: No symptoms or risks identified at this time. Initial Sepsis Screen: Does the patient meet any 2 criteria? No. Patient's initial sepsis screen is negative. Does the patient have a suspected source of infection? No. Patient's initial sepsis screen is negative. Risk Assessment: Do you want to hurt yourself or someone else? Patient reports no desire to harm self or others. Onset of symptoms was March 11, 2020. 10:56 Method Of Arrival: Wheelchair hb 10:56 Acuity: TJ 2 hb Historical: - Allergies: 10:59 No Known Allergies; hb - Home Meds: 10:59 aspirin 81 mg Oral TbEC [Active]; atorvastatin 10 mg Oral tab 1 tab once daily hb [Active]; Lisinopril 12.5MG Oral 1 tab once daily [Active]; pantoprazole 40 mg Oral TbEC 1 tab once daily [Active]; - PMHx: 10:59 GERD; Hyperlipidemia; Hypertension; hb - Immunization history:: Adult Immunizations up to date. - Social history:: Smoking status: Patient denies any tobacco usage or history of. - Family history:: not pertinent. Screenin:38 Abuse screen: Denies threats or abuse. Denies injuries from another. Nutritional iw screening: No deficits noted. Tuberculosis screening: No symptoms or risk factors identified. Fall Risk IV access (20 points). Assessment: 11:00 General: Appears uncomfortable, Behavior is cooperative, anxious. General: Reports iw chills for >3 days, feeling ill for > 3 days, fatigue for >3 days. Pain: Complains of pain in right upper quadrant and left upper quadrant Pain currently is 8 out of 10 on a pain scale. Neuro: Level of Consciousness is awake, alert, obeys commands, Oriented to person, place, time, situation, Moves all extremities. Full function. Cardiovascular: Patient's skin is warm and dry. Respiratory: Respiratory effort is even, unlabored, Respiratory pattern is regular. GI: Bowel sounds present X 4 quads. Abd is soft and non tender X 4 quads. GI: Reports upper abdominal pain, nausea. Derm: Skin is intact, is healthy with good turgor. 13:00 Reassessment: Patient appears in no apparent distress at this time. Patient and/or iw family updated on plan of care and expected duration. Pain level reassessed. Patient is alert, oriented x 3, equal unlabored respirations, skin warm/dry/pink. Vital Signs: 10:56 BP 96 / 73; Pulse 89; Resp 28; Temp 99(TE); Pulse Ox 95% on R/A; Weight 77.11 kg; hb Height 5 ft. 7 in. (170.18 cm); Pain 9/10; 12:51 BP 122 / 60; Pulse 67; Resp 18 S; Pulse Ox 93% on R/A; iw 10:56 Body Mass Index 26.63 (77.11 kg, 170.18 cm) hb ED Course: 10:55 Patient arrived in ED. hb 10:57 Quinn Walker MD is Attending Physician. pati 10:58 Triage completed. hb 10:59 Arm band placed on. hb 11:01 Noemi Stephens, ANA is Primary Nurse. iw 11:10 Patient has correct armband on for positive identification. iw 11:20 Initial lab(s) drawn, by sc, sent to lab. Inserted saline lock: 20 gauge in right iw antecubital area, using aseptic technique. 12:17 Chest Abd Pelvis Wo Con In Process Unspecified. EDMS 12:57 XRAY Chest (1 view) In Process Unspecified. EDMS 13:01 Boogie Roldan MD is Hospitalizing Provider. pati 16:10 No provider procedures requiring assistance completed. Patient admitted, IV remains in iw place. Administered Medications: 11:45 Drug: NS 0.9% 500 ml Route: IV; Rate: bolus; Site: right antecubital; iw 11:45 Drug: Decadron - Dexamethasone 6 mg Route: IVP; Site: right antecubital; iw 11:48 Drug: Pepcid 20 mg Route: IVP; Site: right antecubital; iw 11:50 Drug: Zofran (Ondansetron) 4 mg Route: IVP; Site: right antecubital; iw 12:02 Drug: Rocephin 1 grams Route: IV; Rate: per protocol; Site: right antecubital; iw 13:22 Drug: Thiamine 200 mg Route: IV; Rate: per protocol; Site: right antecubital; iw 13:23 Drug: Zithromax 500 mg Route: IVPB; Infused Over: 1 hrs; Site: right antecubital; iw 13:23 Drug: NS 0.9% 500 ml Route: IV; Rate: bolus; Site: right antecubital; iw 14:00 Drug: Potassium Effervescent Tablet 25 mEq Route: PO; iw 15:00 Drug: Magnesium Sulfate 2 grams Route: IVPB; Infused Over: 2 hrs; Site: right iw antecubital; Outcome: 13:03 Decision to Hospitalize by Provider. pati 16:10 Admitted to ICU accompanied by tech, via stretcher, room bed 5, Report called to marycarmen Cummings RN 16:10 Condition: good 16:10 Discharge instructions given to patient, Instructed on the need for admit, Demonstrated understanding of instructions. 16:11 Patient left the ED. iw Signatures: Dispatcher [employer] EDQuinn Gunter MD MD cha Williams, Irene, RN RN iw Baxter, Heather, RN RN hb Corrections: (The following items were deleted from the chart) 11:05 10:56 Chief complaint: SOB, productive cough, nausea, diarrhea, and chills x 10 days, hb recently tested positive for COVID. Reports worsening SOB and new onset upper abdominal pain since yesterday. hb 12:36 10:25 Inserted saline lock: 20 gauge in right antecubital area, using aseptic iw technique. iw 12:36 10:25 Initial lab(s) drawn, by me, sent to lab. iw iw
[2020-03-11] MEDS ORDERED: THIAMINE 200 MG/2 ML INJ ONE (13:15)
[2020-03-11] MEDS ORDERED: POTASSIUM 25 MEQ EFFERV TAB ONE (13:15)
[2020-03-11] MEDS ORDERED: MAGNESIUM SULFATE 1 gm IVPB 1 GM/100 ML BAG IV ONE (13:16)
--- NOTE | 2020-03-11 13:28 | RAD REPORT ---
EXAM DESCRIPTION: RAD - Chest Single View - 03/11/2020 12:57 pm CLINICAL HISTORY: Cough;Abdominal distention, positive COVID-19 test March 02 COMPARISON: March 06 TECHNIQUE: AP portable chest image was obtained 03/11/2020 12:57 pm . FINDINGS: Lung volumes remain low. Since the prior examination, patient has developed bilateral airs pace opacification worse on the left. No one focal area of dense consolidations seen. This chest film finding is well described with COVID-19 pneumonia and corresponds to the history. Heart and vasculature are normal. No measurable pleural effusion and no pneumothorax. No acute bony abnormality seen. No acute aortic findings suspected. IMPRESSION: Bilateral airspace opacification consistent with COVID-19 pneumonia. Findings represent a significant progression from March 06.
--- NOTE | 2020-03-11 14:08 | P.HP ---
Certification for Inpatient Patient admitted to: Observation With expected LOS: <2 Midnights Patient will require the following post-hospital care: None Practitioner: I am a practitioner with admitting privileges, knowledge of patient current condition, hospital course, and medical plan of care. Services: Services provided to patient in accordance with Admission requirements found in Title 42 Section 412.3 of the Code of Federal Regulations <Ranjan Ewing - Last Filed: 03/11/20 13:51> Patient History Date of Service: 03/11/20 Primary Care Provider: Rebecca Dan Reason for admission: Intractable nausea vomiting/PNA - Covid Positive History of Present Illness: 79-year-old female with past medical history of hypertension, hyperlipidemia and GERD presents to the emergency room complaining of worsening abdominal pain, intractable nausea and vomiting and feelings of shortness of breath. Patient was told she was Covid positive on Saturday of this week. She was swabbed Saturday of the week prior. During the past week she states that she is had worsening abdominal discomfort. Today her abdominal pain is worse and she is having significant nausea with a few episodes of vomiting. States that she is coughing up greenish sputum. In the emergency room patient's blood work shows an elevated creatinine of 2.0, CRP and ferritin are pending, patient's saturations are 95% on room air on arrival to ED. Potassium is slightly decreased at 3.1, magnesium 1.6 and a normal white cell count of 6.7. Patient is afebrile. CT chest abdomen pelvis shows mild to moderately severe ground-glass opacities consistent with Covid PNA findings. The rest of the exam is negative for acute pathology except a fat only supraumbilical ventral hernia with no evidence for an active process. On examination patient is stable. She is alert and oriented x4. He is complaining of significant abdominal pain and still continues with nausea and vomiting up greenish sputum. She is not requiring O2 support. Her breathing is normal with room air saturations of 90% or greater. She states that she has not been able to eat anything for 4 days. She has been taking sips of water and Sprite and eating crackers. Patient will be placed in observation and further evaluate. Home medications list reviewed: No - Past Medical/Surgical History Diabetic: No -: Hyperlipidemia -: Essential hypertension -: Covid positive -: Cholecystectomy -: Right knee ligament repair Psychosocial/ Personal History: Lives at home with daughter - Family History Family History: Reviewed- Non-Contributory - Social History Smoking Status: Never smoker Smoking therapy provided: No Patient receptive to therapy: No Alcohol use: No CD- Drugs: No Caffeine use: No Place of Residence: Home <Ranjan Ewing - Last Filed: 03/11/20 13:51> Date of Service: 03/11/20 <JamarJarredJacksonilya Vazquez - Last Filed: 03/11/20 18:04> Allergies No Known Allergies Allergy (Unverified 03/11/20 12:36) Review of Systems General: Malaise (Nausea/vomiting and coughing up greenish sputum), As per HPI Eyes: Unremarkable ENT: Unremarkable Respiratory: Cough, Shortness of Breath, As per HPI Cardiovascular: Unremarkable Gastrointestinal: Nausea, Vomiting, Abdominal Pain, No Distention Genitourinary: Unremarkable Musculoskeletal: Unremarkable Integumentary: Unremarkable Neurological: Unremarkable Lymphatics: Unremarkable <Ranjan Ewing - Last Filed: 03/11/20 13:51> Physical Examination - Vital Signs Temperature: 99 F Blood Pressure: 122/60 Pulse: 67 Respirations: 28 Pulse Ox (%): 95 (RA) - Physical Exam General: Alert, In no apparent distress, Oriented x3 HEENT: Atraumatic, Normocephalic, PERRLA Neck: Supple, No Thyromegaly, Other (Trachea midline) Respiratory: Clear to auscultation bilaterally, Normal air movement Cardiovascular: No edema, Normal pulses, Regular rate/rhythm, Normal S1 S2 Capillary refill: <2 Seconds Gastrointestinal: Normal bowel sounds, Soft and benign, Non-distended, Tenderness (Mild epigastric pain with palpation) Musculoskeletal: No clubbing, No swelling, No contractures, No erythema Integumentary: No rashes, No breakdown, No significant lesion Neurological: Normal gait, Normal speech, Normal strength at 5/5 x4 extr, Normal tone - Studies Laboratory Data (last 24 hrs) 03/11/20 11:45: WBC 6.7 D, Hgb 12.6, Hct 37.1, Plt Count 187 03/11/20 11:45: Sodium 141, Potassium 3.1 L, BUN 25 H, Creatinine 2.09 H, Glucose 115 H, Magnesium 1.6 L, Total Bilirubin 0.6, AST 42 H, ALT 23, Alkaline Phosphatase 97, Lipase 170 <KaylinRanjan - Last Filed: 03/11/20 13:51> - Studies Laboratory Data (last 24 hrs) 03/11/20 11:45: WBC 6.7 D, Hgb 12.6, Hct 37.1, Plt Count 187 03/11/20 11:45: Sodium 141, Potassium 3.1 L, BUN 25 H, Creatinine 2.09 H, Glucose 115 H, Magnesium 1.6 L, Total Bilirubin 0.6, AST 42 H, ALT 23, Alkaline Phosphatase 97, Lipase 170 <Jackson Roldan - Last Filed: 03/11/20 18:04> Assessment and Plan - Plan Impression: Abdominal pain complicated by intractable nausea and vomiting: Positive Covid pneumonia: Acute kidney injury likely secondary to vomiting and dehydration: Hypokalemia: Hypomagnesemia: Essential hypertension: Hyperlipidemia: Plan: Abdominal pain complicated by intractable nausea and vomiting: Ongoing for the past 4 days. Will start patient on gentle IV hydration. Will continue anti emetics IV. CT chest abdomen pelvis showing ground-glass opacities consistent with COVID pneumonia but no acute pathology except for fat only ventral hernia. Positive Covid pneumonia: Patient was diagnosed positive last Saturday. She is not requiring O2 support. Will continue IV ceftriaxone empirically. Patient is complaining of green sputum. Will monitor white cell count and vitals. Patient is afebrile with normal vital signs. Acute kidney injury likely secondary to vomiting and dehydration: Will continue IV fluids as above. Will monitor daily electrolytes and kidney function. Will consult Nephrology if creatinine worsens. Hypokalemia: Will replace. Monitor daily electrolytes. Hypomagnesemia: Will replace. Monitor daily electrolytes. Essential hypertension: Will start hydralazine 10 mg q.4 hr p.r.n. for systolic blood pressure greater than 160 and diastolic blood pressure greater than 100. Will resume home medications once patient is able to tolerate p.o. diet. Hyperlipidemia: Will resume home medications once patient is able the tolerate p.o. diet. Discharge Plan: Home Plan to discharge in: 48 Hours - Advance Directives Does patient have a Living Will: No Does patient have a Durable POA for Healthcare: No - Code Status/Comfort Care Code Status Assessed: Yes Time Spent Managing Pts Care (In Minutes): 55 <Shurtleff,Ranjan - Last Filed: 03/11/20 13:51> Physician Review: Patient Assessed, Agree with Above Assessment and Plan <Jackson Roldan - Last Filed: 03/11/20 18:04>
[2020-03-11] MEDS ORDERED: POTASSIUM CL SA 10 MEQ TAB PO ONE (14:45)
[2020-03-11 15:16] LABS: C-Reactive Protein 43.5 mg/L (<3.00); Ferritin 714.7 ng/mL (8-388)
[2020-03-11] MEDS: HEPARIN 5000 UNIT/ML 1 ML VIAL SQ SCH (16:48)
[2020-03-11] MEDS: NA CHLORIDE 0.9% 1,000 ML IV SCH (16:48)
[2020-03-11 17:23] VITALS: BMI 27.3
[2020-03-11] MEDS: METHYLPREDNISOLONE 40 MG INJ IV SCH (20:09)
[2020-03-12] MEDS: HEPARIN 5000 UNIT/ML 1 ML VIAL SQ SCH ×3 (00:06→16:31)
[2020-03-12] MEDS: NA CHLORIDE 0.9% 1,000 ML IV SCH ×3 (00:07→20:00)
[2020-03-12] MEDS: ACETAMINOPHEN 500 MG TAB PO PRN ×4 (00:11→22:47)
[2020-03-12 05:16] LABS: Absolute Lymphocytes (CBC) 0.6 K/uL (0.7-4.9); Basophils % 0.1 % (0-1.3); Hematocrit 33.6 % (36.0-45.0); Lymphocytes % 16.9 % (15.3-44.8); MPV 8.8 fL (7.6-11.3); RBC Red Blood Cell Count 3.95 M/uL (3.86-4.86)
[2020-03-12 05:30] LABS: Albumin 2.5 g/dL (3.4-5.0); Bilirubin Total 0.3 mg/dL (0.2-1.0); Magnesium 2.1 mg/dL (1.8-2.4); Potassium 3.4 mmol/L (3.5-5.1); Protein, Total 6.3 g/dL (6.4-8.2)
[2020-03-12] MEDS ORDERED: POTASSIUM CL SA 10 MEQ TAB PO ONE ×2 (05:49→15:00)
[2020-03-12] MEDS: METHYLPREDNISOLONE 40 MG INJ IV SCH ×2 (08:36→20:43)
[2020-03-12] MEDS: CEFTRIAXONE/SWI 1gm 1 GM/10 ML SYR IVP SCH (08:37)
--- NOTE | 2020-03-12 11:50 | P.PN ---
Subjective Date of Service: 03/12/20 Primary Care Provider: Rebecca Dan Chief Complaint: Intractable nausea vomiting/PNA - Covid Positive Subjective: Improving, Doing well (Continues with nausea but states it is less than yesterday. No vomiting. Still having lower abdominal discomfort.) <Ranjan Ewing - Last Filed: 03/12/20 11:43> Date of Service: 03/12/20 <Lenny Regalado - Last Filed: 03/12/20 17:24> Review of Systems General: As per HPI Eyes: Unremarkable ENT: Unremarkable Respiratory: Unremarkable Cardiovascular: Unremarkable Gastrointestinal: Nausea, Abdominal Pain, As per HPI Genitourinary: As per HPI Musculoskeletal: Unremarkable Integumentary: Unremarkable Neurological: Unremarkable <Ranjan Ewing - Last Filed: 03/12/20 11:43> Physical Examination - Vital Signs Temperature: 97.5 F Blood Pressure: 101/60 Pulse: 57 Respirations: 10 Pulse Ox (%): 96 - Physical Exam General: Alert, In no apparent distress, Oriented x3 HEENT: Atraumatic, Normocephalic, Mucous membr. moist/pink Neck: Supple, No Thyromegaly, Other (Trachea midline) Respiratory: Clear to auscultation bilaterally, Normal air movement Cardiovascular: No edema, Normal pulses, Regular rate/rhythm, Normal S1 S2 Capillary refill: <2 Seconds Gastrointestinal: Normal bowel sounds, Soft and benign, Non-distended, Tenderness (Mild tenderness with palpation to lower abdomen) Musculoskeletal: No swelling, No contractures, No erythema, No tenderness Integumentary: No breakdown, No tenderness/swelling Neurological: Normal gait, Normal speech, Normal strength at 5/5 x4 extr, Normal tone - Studies Laboratory Data (last 24 hrs) 03/11/20 11:45: WBC 6.7 D, Hgb 12.6, Hct 37.1, Plt Count 187 03/11/20 11:45: Sodium 141, Potassium 3.1 L, BUN 25 H, Creatinine 2.09 H, Glucose 115 H, Magnesium 1.6 L, Total Bilirubin 0.6, AST 42 H, ALT 23, Alkaline Phosphatase 97, Lipase 170 <Ranjan Ewing - Last Filed: 03/12/20 11:43> Assessment And Plan - Plan Impression: Abdominal pain complicated by intractable nausea and vomiting: Positive Covid pneumonia: Acute kidney injury likely secondary to vomiting and dehydration: Hypokalemia: Hypomagnesemia: Essential hypertension: Hyperlipidemia: Plan: Abdominal pain complicated by intractable nausea and vomiting: Ongoing for the past 4 days prior to admission. Currently only with improved nausea and no vomiting. Contain gentle IV hydration. Continue anti emetics IV. CT chest abdomen pelvis showing ground-glass opacities consistent with COVID pneumonia but no acute pathology except for fat only ventral hernia. Improving abdominal pain. Will start patient on a p.o. diet and advance as tolerated. Once patient is able to tolerate a p.o. diet she can be discharged home with anti emetics. Positive Covid pneumonia: Patient was diagnosed positive last Saturday. She is not requiring O2 support. Will continue IV ceftriaxone empirically due to findings on chest x-ray and CT. Patient is complaining of green sputum. Will monitor white cell count and vitals. Patient is a febrile and white cell count is not elevated. Continues with normal vital signs. Acute kidney injury likely secondary to vomiting and dehydration: Creatinine improved from 2.0 to 1.6 today. We do not have a baseline for patient. Continue IV fluids as above. Will monitor daily electrolytes and kidney function. Will consult Nephrology if creatinine worsens. Hypokalemia: Improved. Will replace. Monitor daily electrolytes. Hypomagnesemia: Resolved. Magnesium of 2.1 today up from 1.6 yesterday. Will replace as needed. Monitor daily electrolytes. Essential hypertension: BP stable. Continue hydralazine 10 mg q.4 hr p.r.n. for systolic blood pressure greater than 160 and diastolic blood pressure greater than 100. Will resume home medications once patient is able to tolerate p.o. diet. Hyperlipidemia: Will resume home medications once patient is able the tolerate p.o. diet. Discharge Plan: Home Plan to discharge in: 24 Hours - Code Status/Comfort Care Code Status Assessed: Yes Physician Review: Patient Assessed, Agree with Above Assessment and Plan Time Spent Managing PTS Care (In Minutes): 45 <Ranjan Ewing - Last Filed: 03/12/20 11:43> - Plan Case reviewed with physician assistant professor sculpture. Agree with evaluation and plan of care. Patient tolerating diet but renal function still compromise. Will continue to monitor at least 1 more day. Anticipate discharge likely tomorrow. <Lenny Regalado - Last Filed: 03/12/20 17:24>
[2020-03-12 15:18] LABS: Urine Appearance CLOUDY; Urine Bilirubin NEGATIVE (NEG); Urine Blood TRACE (NEG); Urine Color YELLOW; Urine Glucose NEGATIVE (NEG); Urine Protein TRACE (NEG); Urine Urobilinogen 0.2 mg/dL (0.2-1.0)
[2020-03-12 15:20] LABS: Urine Microscopic Reflex ORDER UMIC
[2020-03-12 16:09] LABS: Urine Bacteria <20 /HPF (<20); Urine Culture Reflex Order REFLEXED; Urine RBC <5 /HPF (NONE SEEN)
[2020-03-12] MEDS: ONDANSETRON 4 MG/2 ML VIAL IV PRN ×2 (16:31→22:49)
[2020-03-13] MEDS: HEPARIN 5000 UNIT/ML 1 ML VIAL SQ SCH ×3 (00:47→16:15)
[2020-03-13] MEDS: ONDANSETRON 4 MG/2 ML VIAL IV PRN (02:25)
[2020-03-13] MEDS: NA CHLORIDE 0.9% 1,000 ML IV SCH ×3 (06:00→07:58)
[2020-03-13] MEDS: METHYLPREDNISOLONE 40 MG INJ IV SCH (07:38)
[2020-03-13] MEDS: CEFTRIAXONE/SWI 1gm 1 GM/10 ML SYR IVP SCH (07:39)
[2020-03-13] MEDS: ACETAMINOPHEN 500 MG TAB PO PRN ×3 (07:56→20:41)
[2020-03-13 12:41] LABS: Absolute Lymphocytes (CBC) 0.7 K/uL (0.7-4.9); Basophils % 0.4 % (0-1.3); Hematocrit 33.6 % (36.0-45.0); Lymphocytes % 4.9 % (15.3-44.8); MPV 8.8 fL (7.6-11.3); RBC Red Blood Cell Count 3.86 M/uL (3.86-4.86)
[2020-03-13 12:59] LABS: Potassium 4.1 mmol/L (3.5-5.1)
--- NOTE | 2020-03-13 13:49 | P.PN ---
Subjective Date of Service: 03/13/20 Primary Care Provider: Rebecca Dan Chief Complaint: Intractable nausea vomiting/PNA - Covid Positive Subjective: Tolerating diet, Improving, Doing well Review of Systems General: As per HPI Eyes: Unremarkable ENT: Unremarkable Respiratory: Unremarkable Cardiovascular: Unremarkable Gastrointestinal: Nausea Genitourinary: Unremarkable Musculoskeletal: Unremarkable Integumentary: Unremarkable Neurological: Unremarkable Lymphatics: Unremarkable Physical Examination - Vital Signs Temperature: 97.2 F Blood Pressure: 121/60 Pulse: 57 Respirations: 18 Pulse Ox (%): 96 - Physical Exam General: Alert, In no apparent distress, Oriented x3 HEENT: Atraumatic, Normocephalic, PERRLA, Mucous membr. moist/pink Neck: Supple, No Thyromegaly, Other (Trachea midline) Respiratory: Clear to auscultation bilaterally, Normal air movement Cardiovascular: No edema, Normal pulses, Regular rate/rhythm, Normal S1 S2 Capillary refill: <2 Seconds Gastrointestinal: Normal bowel sounds, Soft and benign, Non-distended, Tenderness (Mild pain with palpation in the epigastric area) Musculoskeletal: No clubbing, No swelling, No contractures, No erythema Integumentary: No rashes, No breakdown, No significant lesion, No tenderness/swelling Neurological: Normal speech, Normal strength at 5/5 x4 extr, Normal tone - Studies Laboratory Data (last 24 hrs) 03/13/20 03:47: Potassium 4.0 Assessment And Plan - Plan Impression: Abdominal pain complicated by intractable nausea and vomiting: Positive Covid pneumonia: Acute on Cr kidney injury likely exacerbate secondary to vomiting and dehydration: Urinary tract infection: Hypokalemia: Hypomagnesemia: Essential hypertension: Hyperlipidemia: Plan: Abdominal pain complicated by intractable nausea and vomiting: Ongoing for the past 4 days prior to admission. Continues with nausea and no vomiting. Will switch to 1/2 NS gentle IV hydration. Continue anti emetics IV. CT chest abdomen pelvis showing ground-glass opacities consistent with COVID pneumonia but no acute pathology except for fat only ventral hernia. Improving abdominal pain. Tolerating liquid p.o. diet and will advance as tolerated. Once patient is able to tolerate a p.o. diet she can be discharged home with anti emetics. Positive Covid pneumonia: Patient was diagnosed positive last Saturday. She is not requiring O2 support. Will continue IV ceftriaxone empirically due to findings on chest x-ray and CT. Patient is complaining of green sputum on admission. Will monitor white cell count and vitals. Patient is a febrile and white cell count is not elevated. Continues with normal vital signs. Acute on chronic kidney injury likely exacerbated secondary to vomiting and dehydration: Creatinine improved from 2.0 to 1.6 but has remained at 1.6 today. Only other creatinine prior to this admission was on 03/06 which showed a creatinine of 1.97. We do not have a prior baseline for patient. Will consult Nephrology. Will switch to 1/2 NS IV fluids. Will await nephrology consults. Will order renal ultrasound as well. Hypokalemia: Potassium of 1.4 today. Will replace as necessary. Monitor daily electrolytes. Urinary tract infection: UA positive for leukocyte esterase and white cells greater than 50. Currently on IV Rocephin. Will continue IV antibiotics and monitor white cell count. Afebrile with stable vital signs. Hypomagnesemia: Resolved. Will replace as needed. Monitor daily electrolytes. Essential hypertension: BP stable. 121/66 this morning. Continue hydralazine 10 mg q.4 hr p.r.n. for systolic blood pressure greater than 160 and diastolic blood pressure greater than 100. Will resume home medications once patient is able to tolerate p.o. diet. Hyperlipidemia: Will resume home medications once patient is able the tolerate p.o. diet. Discharge Plan: Home Plan to discharge in: 48 Hours - Code Status/Comfort Care Code Status Assessed: Yes Physician Review: Patient Assessed, Agree with Above Assessment and Plan Time Spent Managing PTS Care (In Minutes): 45
[2020-03-13] MEDS: NACHLORIDE 0.45% 1,000 ML IV SCH (14:43)
[2020-03-13 14:46] LABS: Blood Morphology Comment NOT SEEN (NOT SEEN); Platelet Estimate ADEQ; Urine White Blood Cell Casts OK
[2020-03-13] MEDS: ACETYLCYST 20% 800 MG/4 ML VIAL PO SCH (20:14)
[2020-03-13] MEDS: MORPHINE 2 MG/ML SYR IV PRN (22:55)
--- NOTE | 2020-03-14 00:42 | CON ---
Date of Consultation: 03/13/2020 Chief Complaint: Acute on chronic kidney injury, prerenal azotemia. History Of Present Illness: The patient was found to have elevated creatinine up to 2 and the patien t is admitted to the hospital because of hypertension, hyperlipidemia, shortness of breath. She was complaining of worsening of abdominal pain, intractable nausea, vomiting, and feeling short of breath . She was found to have COVID positive pneumonia on Saturday this week. She was swabbed on the a week prior and during the past week, she states that she had worsening of abdominal discomfort. She had some greenish sputum and productive cough with greenish sputum started a few days ago. In the emergency room, the patient was found to have elevated creatinine up to 2.5. The patient has chr onic kidney disease stage 3. Baseline creatinine level is about 1.6, potassium level was slightly di minished to 3.1, and magnesium was on low side, and white blood cells 6.7. CT scan of the chest, abd omen, and pelvis showed [id number] severe ground-glass opacities consistent with COVID pneumoni a findings. The patient is admitted to the hospital. Saturation is 92% or greater. The patient is not oxygen de pendent. Past Medical History: Hyperlipidemia, hypertension, COVID positive, cholecystectomy, right knee liga ment repair, chronic kidney disease stage 3, hypertensive heart and kidney disease. Family History: No kidney disease in the family. Social History: Denies tobacco, alcohol, or illicit drugs. Review of Systems: General: Complains of malaise. She had some nausea, vomiting, abdominal discomfort, cough with gree wilfredo sputum. Eyes: Unremarkable. There is no evidence of any new changes. Respiratory: Cough, shortness of breath. Cardiovascular: No syncope. No palpitation. Gastrointestinal: Nausea, vomiting, abdominal pain. No distention. Genitourinary: No hematuria. No dysuria. No incomplete voiding. All other systems reviewed and all are negative. Physical Examination: Vital Signs: Blood pressure 122/60, heart rate 67, respiratory rate 28, pulse oximeter 95. General: Alert and oriented x3. Not in acute distress. Eyes: Anicteric sclerae. EOMI. Ears, Nose, Mouth, and Throat: Oral mucosa moist. No pallor. Respiratory: Normal air movement. Cardiovascular: S1, S2. No pericardial friction rub. Abdomen: Soft, benign. Extremities: Slight edema present in both legs. Laboratory Data: WBC is 6.7, hemoglobin 12.6, platelet count 187,000. Sodium 141, potassium 3.1, BU N 25, creatinine 2.09, glucose 115, magnesium 1.6, AP 97, lipase 170. On March 11, glucose was 115. Impression And Plan: 1.Abdominal pain with intractable nausea, vomiting. The patient has some volume depletion and relat ed prerenal azotemia, acute on chronic kidney injury. The patient likely has benign nephrosclerosis as primary kidney disease entity. Continue to adjust IV fluids. 2.Hypokalemia. Monitor electrolytes and replace magnesium. Hypomagnesemia is contributory to hypok alemia in this particular patient. Adjust replacement accordingly. 3.Abdominal pain. The patient had CT scan of the chest and pelvis. It showed COVID pneumonia. The patient did not have other findings except for only her ventral hernia present. 4.Hypertension. The patient is started on hydralazine. Monitor blood pressure and continue hydrala zine for hypertensive heart disease and kidney disease. 5.Hyperlipidemia. Continue medication and check CK level to rule out rhabdomyolysis. EB/MODL Voice ID: [id number] Report ID: [id number]
[2020-03-14] MEDS: HEPARIN 5000 UNIT/ML 1 ML VIAL SQ SCH ×3 (01:11→16:02)
[2020-03-14 06:02] LABS: Absolute Lymphocytes (CBC) 1.2 K/uL (0.7-4.9); Basophils % 0.2 % (0-1.3); Hematocrit 32.6 % (36.0-45.0); Lymphocytes % 8.8 % (15.3-44.8); MPV 8.4 fL (7.6-11.3); RBC Red Blood Cell Count 3.81 M/uL (3.86-4.86)
[2020-03-14] MEDS: ACETYLCYST 20% 800 MG/4 ML VIAL PO SCH ×2 (07:42→21:40)
[2020-03-14] MEDS: CEFTRIAXONE/SWI 1gm 1 GM/10 ML SYR IVP SCH (07:43)
[2020-03-14] MEDS: NACHLORIDE 0.45% 1,000 ML IV SCH ×2 (07:44→23:14)
--- NOTE | 2020-03-14 11:11 | P.PN ---
Subjective Date of Service: 03/14/20 Primary Care Provider: Rebecca Dan Chief Complaint: Intractable nausea vomiting/PNA - Covid Positive Subjective: Tolerating diet, Improving Review of Systems 10-point ROS is otherwise unremarkable Gastrointestinal: Nausea Physical Examination - Vital Signs Temperature: 96.9 F Blood Pressure: 146/72 Pulse: 48 Respirations: 16 Pulse Ox (%): 100 - Physical Exam General: Alert, In no apparent distress HEENT: Atraumatic, PERRLA, EOMI Neck: Supple, JVD not distended Respiratory: Clear to auscultation bilaterally, Normal air movement Cardiovascular: Regular rate/rhythm, Normal S1 S2 Gastrointestinal: Normal bowel sounds, No tenderness Musculoskeletal: No tenderness Integumentary: No rashes Neurological: Normal speech, Normal tone, Normal affect Lymphatics: No axilla or inguinal lymphadenopathy - Studies Medications List Reviewed: Yes Assessment & Plan Discharge Plan: Home Plan to discharge in: 24 Hours - Code Status/Comfort Care Code Status Assessed: Yes Physician Review Additional Text: Impression: Abdominal pain complicated by intractable nausea and vomiting: Positive Covid pneumonia: Acute on Cr kidney injury likely exacerbate secondary to vomiting and dehydration: Urinary tract infection: Hypokalemia: Hypomagnesemia: Essential hypertension: Hyperlipidemia: Plan: Abdominal pain complicated by intractable nausea and vomiting: Ongoing for the past 4 days prior to admission. Continues with nausea and no vomiting. Will switch to 1/2 NS gentle IV hydration. Continue anti emetics IV. CT chest abdomen pelvis showing ground-glass opacities consistent with COVID pneumonia but no acute pathology except for fat only ventral hernia. Improving abdominal pain. Today patient is tolerating a soft diet. Clinically looking much better. From this stable and patient could be discharged as early as today. Positive Covid pneumonia: Patient was diagnosed positive last Saturday. She is not requiring O2 support. Will continue IV ceftriaxone empirically due to findings on chest x-ray and CT. Patient is complaining of green sputum on admission. Will monitor white cell count and vitals. Patient is a febrile and white cell count is not elevated. Continues with normal vital signs. Acute on chronic kidney injury likely exacerbated secondary to vomiting and dehydration: Creatinine improved from 2.0 to 1.6 but has remained at 1.6 today. Only other creatinine prior to this admission was on 03/06 which showed a creatinine of 1.97. We do not have a prior baseline for patient. Will switch to 1/2 NS IV fluids. Nephrology consult in place. CK level has been ordered. Await further recommendations from nephrology. Hypokalemia: Potassium of 4.1 today. Will replace as necessary. Monitor daily electrolytes. Urinary tract infection: UA positive for leukocyte esterase and white cells greater than 50. Currently on IV Rocephin. Will continue IV antibiotics and monitor white cell count. Afebrile with stable vital signs. Will transition to oral antibiotics. Hypomagnesemia: Resolved. Will replace as needed. Monitor daily electrolytes. Essential hypertension: BP stable. 121/66 this morning. Continue hydralazine 10 mg q.4 hr p.r.n. for systolic blood pressure greater than 160 and diastolic blood pressure greater than 100. Will resume home medications once patient is able to tolerate p.o. diet. Hyperlipidemia: Will resume home medications once patient is able the tolerate p.o. diet and CK level has been assessed to rule out rhabdomyolysis. Critical Care: No Time Spent Managing Pts Care (In Minutes): 55
[2020-03-14] MEDS: MORPHINE 2 MG/ML SYR IV PRN (15:09)
--- NOTE | 2020-03-14 17:33 | RAD REPORT ---
EXAM DESCRIPTION: Nicola Single View03/14/2020 4:41 pm CLINICAL HISTORY: Shortness of breath COMPARISON: March 11 FINDINGS: Improvement in the bilateral pulmonary opacities. The heart is normal size IMPRESSION: Mild improvement in the bilateral pneumonia
[2020-03-14] MEDS: predniSONE 20 MG TAB PO SCH (21:42)
[2020-03-14] MEDS: ONDANSETRON 4 MG/2 ML VIAL IV PRN (23:15)
--- NOTE | 2020-03-15 02:43 | PN ---
Date of Progress Note: 03/14/2020 Chief Complaint: Acute on chronic kidney injury secondary to prerenal azotemia. Creatinine level wa s elevated up to 2. Subjective: The patient was found to have COVID pneumonia. She has history of chronic kidney diseas e stage 3, hypertension, hypertensive heart and kidney disease, hyperlipidemia. She presented with s hortness of breath. Baseline creatinine level usually in 1.6 range. The patient was found to have hypokalemia and magnesium was on low side. The patient received replac ement. Review of Systems: Denies new complaints. Physical Examination: Lungs: Diminished breath sounds at bases. Heart: S1, S2. Abdomen: Soft, benign. Extremities: No edema. Laboratory Data: Hemoglobin 11.3, WBC 13.2, platelet count 231,000. Sodium 145, potassium 4, chlori de 120, CO2 21, BUN 30, creatinine 1.6, calcium 7.4. Impression And Plan: 1.Acute on chronic kidney injury with prerenal azotemia. The patient is tolerating IV fluids. 2.Hypernatremia is improving. 3.Monitor electrolytes. Adjust replacement for potassium and magnesium as needed. 4.COVID pneumonia per primary team. EB/MODL Voice ID: [id number] Report ID: [id number]
[2020-03-15] MEDS: predniSONE 20 MG TAB PO SCH (07:35)
[2020-03-15] MEDS: CEFTRIAXONE/SWI 1gm 1 GM/10 ML SYR IVP SCH (07:36)
[2020-03-15] MEDS: ACETYLCYST 20% 800 MG/4 ML VIAL PO SCH (07:36)
[2020-03-15] MEDS: HEPARIN 5000 UNIT/ML 1 ML VIAL SQ SCH ×3 (07:38→16:35)
--- NOTE | 2020-03-15 08:55 | P.DS ---
Admission Date: 03/13/20 Discharge Date: 03/15/20 Primary Care Provider: Rebecca Dan Disposition: ROUTINE DISCHARGE Discharge Condition: GOOD Reason for Admission: Intractable nausea vomiting/PNA - Covid Positive Procedures: Medical problem list Abdominal pain complicated by intractable nausea and vomiting: Positive Covid pneumonia: Acute on Cr kidney injury likely exacerbate secondary to vomiting and dehydration: Urinary tract infection: Hypokalemia: Hypomagnesemia: Essential hypertension: Hyperlipidemia: Chest x-ray 03/11 FINDINGS: Lung volumes remain low. Since the prior examination, patient has developed bilateral airspace opacification worse on the left. No one focal area of dense consolidations seen. This chest film finding is well described with C OVID-19 pneumonia and corresponds to the history. Heart and vasculature are normal. No measurable pleural effusion and no pneumothorax. No acute bony abnormality seen. No acute aortic findings suspec mehran. IMPRESSION: Bilateral airspace opacification consistent with COVID-19 pneumonia. Findings represent a significant progression from March 06. Chest x-ray 03/14 FINDINGS: Improvement in the bilateral pulmonary opacities. The heart is normal size IMPRESSION: Mild improvement in the bilateral pneumonia CT chest abdomen pelvis FINDINGS: Scattered ground-glass opacification present in the lung starr. This is a well described COVID-19 pneumonia pattern matches the history. This is seen is mild, bordering on moderate, severity disease. No dense consolidation or mass. No pneumothorax or pleural effusion. No chest wall mass or abnormal axillary lymphadenopathy seen. Mediastinal and hilar regions show no mass or lymphadenopathy. No significant cardiac finding. The liver, spleen and pancreas show no significant findings. Gallbladder is absent or very tightly contracted. No cholecystectomy clips are seen. There is no biliary tree dilatation. Renal function cannot be assessed. There is cortical thinning in each kidney. No hydronephrosis or gross mass abnormality. Isodense masses and pyelonephritis cannot be excluded. No adrenal abnormalities. No urinary bladder abnormalities. No uterine abnormality. Ovaries are atrophic. No adnexal mass identified. Patient has a small hiatal hernia. No stomach abnormality. Large and small bowel show no acute findings. The colon is decompressed with little stool volume. Diverticulosis is minimal. No diverticulitis. No free air, free fluid or inflammatory stranding. No mass or bulky lymphadenopathy. A small supraumbilical ventral hernia is seen in the mid abdomen. Diameter the hernia is approximately 3 cm with a 10 centimeter neck. This is only fatty tissue with no congestion or edema. Disc and bony degenerative changes are present. Degenerative gas is present in L2-3, L3-4 and L4-5. No pathologic or aggressive bone process. IMPRESSION: Bilateral ground-glass opacification pattern in the lung starr. This [id number] severe finding is a well described COVID-19 pneumonia pattern. Brief History of Present Illness: 79-year-old female with history of chronic kidney disease, hyperlipidemia, hypertension and was recently diagnosed with COVID-19 was admitted with intractable nausea and decreased appetite. The patient is found to have acute on chronic kidney disease as well as a suspected urinary tract infection. Patient was admitted for further evaluation and management. Hospital Course: 79-year-old female with history of hypertension, hyperlipidemia, GERD was admitted for intractable nausea and vomiting with acute on chronic renal disease. Patient's creatinine was elevated at 2.01. Patient was admitted and given IV fluids, anti emetics and her diet was advanced as tolerated. The discharge patient is not tolerating a regular diet without any difficulty. Patient denies any nausea, vomiting, abdominal pain at this time. Patient's creatinine has improved to around 1.6. Nephrology has seen the patient and cleared her for discharge. Patient electrolytes currently within normal limits. Patient with COVID 19 findings on chest x-ray and CT scan. These findings have improved since initial chest x-ray. Patient is currently 96-98% on room air not having any difficulty breathing. Tended to qualify patient for home oxygen but she did not qualify. Patient need to follow up closely with primary care doctor. Patient be discharged with prescription for Zofran 4 mg p.o. every 4-6 hr as needed, as well as prednisone 20 mg p.o. b.i.d. for 7 days. Patient given strict precautions for new or worsening symptoms, especially shortness of breath. Patient with history of hypertension, at discharge will continue with lisinopril 10 mg p.o. at bedtime. Patient with history of hyperlipidemia at discharge will continue with atorvastatin 10 mg p.o. at bedtime. Patient with history of GERD, discharge patient continue with pantoprazole 40 mg p.o. at bedtime. Vital Signs/Physical Exam: Temp Pulse Resp BP Pulse Ox 97.5 F 58 18 141/61 H 96 03/15/20 04:00 03/15/20 04:00 03/15/20 04:00 03/15/20 04:00 03/15/20 04:00 General: Alert, In no apparent distress HEENT: Atraumatic, PERRLA, EOMI Neck: Supple, JVD not distended Respiratory: Clear to auscultation bilaterally, Normal air movement Cardiovascular: Regular rate/rhythm, Normal S1 S2 Gastrointestinal: Normal bowel sounds, No tenderness Musculoskeletal: No tenderness Integumentary: No rashes Neurological: Normal speech, Normal tone, Normal affect Lymphatics: No axilla or inguinal lymphadenopathy Laboratory Data at Discharge: WBC 13.2 K/uL (4.3-10.9) H 03/14/20 05:50 Hgb 11.3 g/dL (12.0-15.0) L 03/14/20 05:50 Hct 32.6 % (36.0-45.0) L 03/14/20 05:50 Plt Count 231 K/uL (152-406) 03/14/20 05:50 Sodium 145 mmol/L (136-145) 03/14/20 05:50 Potassium 4.0 mmol/L (3.5-5.1) 03/14/20 05:50 BUN 30 mg/dL (7-18) H 03/14/20 05:50 Creatinine 1.61 mg/dL (0.55-1.3) H 03/14/20 05:50 Glucose 86 mg/dL (74-106) 03/14/20 05:50 Magnesium 2.1 mg/dL (1.8-2.4) D 03/12/20 04:50 Total Bilirubin 0.3 mg/dL (0.2-1.0) 03/12/20 04:50 AST 30 U/L (15-37) 03/12/20 04:50 ALT 21 U/L (12-78) 03/12/20 04:50 Alkaline Phosphatase 82 U/L (45-117) 03/12/20 04:50 Troponin I < 0.02 ng/mL (0.0-0.045) 03/14/20 16:34 Lipase 170 U/L (73-393) 03/11/20 11:45 Home Medications: Aspirin [Aspirin EC 81 MG] 81 mg PO BEDTIME 03/11/20 Atorvastatin Calcium 10 mg PO BEDTIME 03/11/20 Pantoprazole Sodium [Protonix] 40 mg PO BEDTIME 03/11/20 lisinopriL [Lisinopril] 10 mg PO BEDTIME 03/11/20 Ondansetron [Zofran] 4 mg PO Q6H PRN #16 tab 03/15/20 predniSONE [Prednisone*] 20 mg PO BID 7 Days #14 tab 03/15/20 New Medications: predniSONE [Prednisone*] 20 mg PO BID 7 Days #14 tab Ondansetron [Zofran] 4 mg PO Q6H PRN #16 tab PRN Reason: Nausea / Vomiting Patient Discharge Instructions: 1. Please follow up her primary care doctor within next 1 week to follow up this hospitalization. Please also follow up with nephrology on an outpatient basis after he had been cleared to do so. 2. Please immediately return to the the hospital with any significant worsening with breathing. 3. 79-year-old female with history of hypertension, hyperlipidemia, GERD was admitted for intractable nausea and vomiting with acute on chronic renal disease. Patient's creatinine was elevated at 2.01. Patient was admitted and given IV fluids, anti emetics and her diet was advanced as tolerated. The discharge patient is not tolerating a regular diet without any difficulty. Patient denies any nausea, vomiting, abdominal pain at this time. Patient's creatinine has improved to around 1.6. Nephrology has seen the patient and cleared her for discharge. Patient electrolytes currently within normal limits. Patient with COVID 19 findings on chest x-ray and CT scan. These findings have improved since initial chest x-ray. Patient is currently 96-98% on room air not having any difficulty breathing. Tended to qualify patient for home oxygen but she did not qualify. Patient need to follow up closely with primary care doctor. Patient be discharged with prescription for Zofran 4 mg p.o. every 4-6 hr as needed, as well as prednisone 20 mg p.o. b.i.d. for 7 days. Patient given strict precautions for new or worsening symptoms, especially shortness of breath. Patient with history of hypertension, at discharge will continue with lisinopril 10 mg p.o. at bedtime. Patient with history of hyperlipidemia at discharge will continue with atorvastatin 10 mg p.o. at bedtime. Patient with history of GERD, discharge patient continue with pantoprazole 40 mg p.o. at bedtime. Diet: Regular Activity: Ad liana Time spent managing pt's care (in minutes): 55
[2020-03-15 09:25] VITALS: O2SAT 98
--- NOTE | 2020-03-15 13:09 | RAD REPORT ---
EXAM DESCRIPTION: US - Renal Ultrasound-Complete - 03/15/2020 1:03 pm CLINICAL HISTORY: Abdominal pain COMPARISON: None. FINDINGS: The right kidney measures 9 cm with a normal echotexture. The left kidney measures 10 cm with a normal echotexture. Renal cortical thinning bilaterally Hydronephrosis is not seen. No gross abnormality of bladder IMPRESSION: Renal cortical thinning bilaterally may indicate chronic disease.
[2020-03-15 16:42] VITALS: BP 124/55; TEMP 97.8
--- NOTE | 2020-03-16 03:11 | PN ---
Date of Progress Note: 03/15/2020 Chief Complaint: Acute kidney injury secondary to prerenal azotemia. Creatinine level was over 2 an d improved with IV hydration. Subjective: The patient was admitted to the hospital for COVID pneumonia. She has history of chroni c kidney disease stage 3, hypertension, hypertensive heart and kidney disease, baseline creatinine le lindsay is usually ranging at 1.6. Review of Systems: Denies new complaints. Physical Examination: Lungs: Diminished breath sounds at bases. Heart: S1 and S2. Abdomen: Soft, benign. Extremities: Minimal edema. Laboratory Data: Hemoglobin 11.3, WBC 13.2, and platelet count 231,000. Sodium 145, potassium 4.0, chloride 120, CO2 of 21, BUN 30, creatinine 1.6, calcium 7.6, and glucose 86. Impression And Plan: 1.Acute kidney injury. Renal ultrasound did not show obstructive uropathy. The patient has chronic kidney disease, stage 3. Recommend to avoid nephrotoxic medication. 2.Hypernatremia, improved. 3.COVID pneumonia, per primary team. GLORY/EVER Voice ID: [id number] Report ID: [id number]
--- NOTE | 2020-03-20 07:54 | EKG ---
Test Date: 2020-03-13 Test Time: 22:58:02 Administrative Executive: RT-O MEASUREMENT RESULTS: Intervals: Rate: 51 FL: 146 QRSD: 78 QT: 488 QTc: 449 [place]: P: 47 FL: 146 QRS: 42 T: 62 INTERPRETIVE STATEMENTS: Sinus bradycardia Otherwise normal ECG Compared to ECG 03/11/2020 11:57:57 Sinus rhythm no longer present Myocardial infarct finding no longer present Electronically Signed On 03-20-20 07:50:47 CDT by Robert Aguila
== END 2020-03-15 18:26 | disposition home or self-care (01) | DRG 177 ==
LOC: ER 10:53 → ERHOLD 13:47 → 3RD-ICU 15:55 → 4TH 03-12 16:15 → OBSVTOIN 03-13 10:40
PROVIDERS: ADMIT Family Medicine; ATTEND Family Medicine
DX: U07.1 COVID-19 (principal); J12.89 Other viral pneumonia; N17.9 Acute kidney failure, unspecified; E87.0 Hyperosmolality and hypernatremia; N39.0 Urinary tract infection, site not specified; E78.5 Hyperlipidemia, unspecified; K21.9 Gastro-esophageal reflux disease without esophagitis; E86.0 Dehydration; E87.6 Hypokalemia; E83.42 Hypomagnesemia; I12.9 Hypertensive chronic kidney disease with stage 1 through stage 4 chronic kidney disease, or unspecified chronic kidney disease; N18.3 Chronic kidney disease, stage 3 (moderate); K43.9 Ventral hernia without obstruction or gangrene; Z90.49 Acquired absence of other specified parts of digestive tract; Z79.82 Long term (current) use of aspirin; Z79.899 Other long term (current) drug therapy
CPT/HCPCS: 36415; 71045; 71250; 74176; 76770; 80048; 80053; 80076; 81003; 81015; 82550; 82565; 82728; 83690; 83735; 83880; 84132; 84484; 85025; 86140; 87040; 87086; 87088; 93005; 96374; 96375; 99285; G0378; J0456; J0696; J1100; J1644; J2270; J2405; J2920; J3411; J3475; J7030; J7050; J7512

== ENCOUNTER 2022-04-16 14:25 | Emergency (ER) | payer MEDICARE, OTHER ==
--- OUTSIDE RECORDS SUMMARY | 2022-04-16 14:27 | XMS REPORT | Continuity of Care Document ---
:1940 Author Organization [facility] Address [address] [place] [address] Care Team Providers Name Role Phone Papi LAND, Elie Mckeon Primary Care Physician A_Papi Attending Clinician Unavailable Juaquin Admitting Clinician Unavailable Payers Payer Name Policy Type Policy Number Effective Date Expiration Date Giovanna cade [place]ICARE B-[place]: [id number] 2007 [employer] 00:00:00 [facility] [id number] 2017 OPTIONS (MEDICARE 00:00:00 SUPPLEMENT) Problems Condition Condition Condition Status Onset Resolution Last Treating Co mments Source Name Details Category Date Date Treatment Clinician Date No known No known Disease Metho di active active st problems problems Hospit [facility] Allergies, Adverse Reactions, Alerts This patient has no known allergies or adverse reactions. Family History Family Member Diagnosis Comments Start Date Stop Date Source Natural brother Cancer [facility] Natural brother Heart attack [facility] Natural father Heart disease [facility] Natural mother Hypertension [facility] Social History Social Habit Start Date Stop Date Quantity Comments Source Sex Ass[birth year] At [birth year] [facility] 00:00:00 00:00:00 Smoking Status Start Date Stop Date Source Tobacco smoking consumption unknown [facility] Medications Ordered Filled Start Stop Current Ordering Indication Dosage Frequency Signature Comments Components Source Medication Medication Date Date Medication? Clinician (SIG) Name Name aspirin Yes 81mg QD Take 81 mg Meth [place] (ECOTRIN) 3-[address] 81 MG 18:58: daily. [facility] l coated tablet aspirin Yes 81mg QD Take 81 mg Meth [place] (ECOTRIN) 3-[address] 81 MG 18:58: daily. [facility] l coated tablet aspirin Yes 81mg QD Take 81 mg Meth [place] (ECOTRIN) 3-[address] 81 MG 12:58: daily. [facility] l coated tablet aspirin Yes 81mg QD Take 81 mg Meth [place] (ECOTRIN) 3-[address] 81 MG 12:58: daily. [facility] 14 l coated tablet pantoprazol Yes TK 1 T PO M ethodi e 2-[address] (PROTONIX) 00:00: Hospita 40 MG EC 00 l tablet pantoprazol Yes TK 1 T PO M ethodi e 2-[address] (PROTONIX) 00:00: Hospita 40 MG EC 00 l tablet pantoprazol Yes TK 1 T PO M ethodi e 2-[address] (PROTONIX) 00:00: Hospita 40 MG EC 00 l tablet pantoprazol Yes TK 1 T PO M ethodi e 2-[address] (PROTONIX) 00:00: Hospita 40 MG EC 00 l tablet lisinopril- Yes TK 1 T PO M ethodi hydrochloro 2-[address] thiazide 00:00: Hospita (PRINZIDE,Z 00 l ESTORETIC) 20-12.5 mg per tablet atorvastati Yes TK 1 T PO M ethodi n (LIPITOR) 2-[address] 10 MG 00:00: Hospita tablet 00 l lisinopril- Yes TK 1 T PO M ethodi hydrochloro 2-[address] thiazide 00:00: Hospita (PRINZIDE,Z 00 l ESTORETIC) 20-12.5 mg per tablet atorvastati 2017-0 Yes TK 1 T PO M ethodi n (LIPITOR) 2-[address] 10 MG 00:00: Hospita tablet 00 l lisinopril- Yes TK 1 T PO M ethodi hydrochloro 2-[address] thiazide 00:00: Hospita (PRINZIDE,Z 00 l ESTORETIC) 20-12.5 mg per tablet atorvastati Yes TK 1 T PO M ethodi n (LIPITOR) 2-[address] 10 MG 00:00: Hospita tablet 00 l atorvastati Yes TK 1 T PO M ethodi n (LIPITOR) 2-[address] 10 MG 00:00: Hospita tablet 00 l lisinopril- Yes TK 1 T PO M ethodi hydrochloro 2-[address] thiazide 00:00: Hospita (PRINZIDE,Z 00 l ESTORETIC) 20-12.5 mg per tablet meclizine Yes TK 1 T PO Met [facility] (ANTIVERT) 2-[address] 25 mg 00:00: Hospita tablet 00 l meclizine Yes TK 1 T PO [facility] (ANTIVERT) 2-[address] 25 mg 00:00: Hospita tablet 00 l meclizine 0 Yes TK 1 T PO Met [facility] (ANTIVERT) 2-[address] 25 mg 00:00: Hospita tablet 00 l meclizine 20170 Yes TK 1 T PO Met [facility] (ANTIVERT) 2-[address] 25 mg 00:00: Hospita tablet 00 l Procedures This patient has no known procedures. Plan of Care Planned Activity Planned Date Details Comments Source Future Scheduled 2022-04-13 HEPATITIS B VACCINES [facility] Test 08:38:44 (1 of 3 - 3-dose series) [code = HEPATITIS B VACCINES (1 of 3 - 3-dose series)] Future Scheduled 2022-04-13 COVID-19 VACCINE (#1) [facility] Test 08:38:44 [code = COVID-19 VACCINE (#1)] Future Scheduled 2022-04-13 SHINGLES VACCINES (1 [facility] 08:38:44 of 2) [code = SHINGLES VACCINES (1 of 2)] Future Scheduled 2022-04-13 65[facility] 08:38:44 VACCINE (1 - PCV) [code = 65+ PNEUMOCOCCAL VACCINE (1 - PCV)] Future Scheduled 2022-04-13 [facility]ACCINE [facility] 08:38:44 [code = INFLUENZA VACCINE] Future Scheduled 2021-09-18 COVID-19 VACCINE (1) [facility] Test 20:29:52 [code = COVID-19 VACCINE (1)] Future Scheduled 2021-09-18 SHINGLES VACCINES (#1) [facility] 20:29:52 [code = SHINGLES VACCINES (#1)] Future Scheduled 2021-09-18 65+ [facility]CCAL [facility] 20:29:52 VACCINE (1 of 1 - PPSV23) [code = 65+ PNEUMOCOCCAL VACCINE (1 of 1 - PPSV23)] Future Scheduled 2021-09-18 [facility]ACCINE [facility] 20:29:52 [code = INFLUENZA VACCINE] Future Scheduled COVID-19 VACCINE (1) [facility] Test [code = COVID-19 VACCINE (1)] Future Scheduled SHINGLES VACCINES (#1) [facility] [code = SHINGLES VACCINES (#1)] Future Scheduled 65+ [facility]OCOCCAL [facility] VACCINE (1 of 1 - PPSV23) [code = 65+ PNEUMOCOCCAL VACCINE (1 of 1 - PPSV23)] Future Scheduled [facility] [code = INFLUENZA VACCINE] Future Scheduled COVID-19 VACCINE (1) [facility] Test [code = COVID-19 VACCINE (1)] Future Scheduled SHINGLES VACCINES (#1) [facility] [code = SHINGLES VACCINES (#1)] Future Scheduled 65+ [facility]OCOCCAL [facility] VACCINE (1 of 1 - PPSV23) [code = 65+ PNEUMOCOCCAL VACCINE (1 of 1 - PPSV23)] Future Scheduled [facility]ZA [facility]ACCINE [facility] [code = INFLUENZA VACCINE] Encounters Start End Encounter Admission Attending Care Care Encounter Source Date/Time Date/Time Type Type Clinicians Facility Department ID 2020-06-29 2020-06-29 [facility] [id number] [place] 02:37:00 02:37:00 [id number] 2020-04-29 2020-04-29 Outpatient A_Byrd [facility] [id number] [place] 02:35:00 02:35:00 [id number] Results This patient has no known results.
[2022-04-16 14:59] LABS: Absolute Lymphocytes (CBC) 1.6 K/uL (0.7-4.9); Hematocrit 34.9 % (36.0-45.0); Lymphocytes % 24.5 % (15.3-44.8); MPV 7.2 fL (7.6-11.3); RBC Red Blood Cell Count 4.06 M/uL (3.86-4.86)
--- NOTE | 2022-04-16 15:09 | RAD REPORT ---
EXAM DESCRIPTION: RAD - Chest Single View - 04/16/2022 3:03 pm CLINICAL HISTORY: CHEST PAIN COMPARISON: Chest Single View dated 03/14/2020; Chest Single View dated 03/11/2020; Chest Single View d ated 03/06/2020 FINDINGS: Lines: None. Lungs: No evidence of edema or pneumonia. Pleural: No significant pleural effusions or pneumothorax. Cardiac: The heart size is within normal limits. Mediastinum: Within normal limits. Bones: No acute fractures. Other: None IMPRESSION: No acute cardiopulmonary disease.
[2022-04-16 15:28] LABS: Potassium 2.9 mmol/L (3.5-5.1)
[2022-04-16] MEDS ORDERED: NA CHLORIDE 0.9% 250 ML ONE (15:50)
[2022-04-16] MEDS ORDERED: POTASSIUM 25 MEQ EFFERV TAB ONE (15:50)
[2022-04-16] MEDS ORDERED: KCL 20 MEQ/100 mL IVPB 100 ML IV ONE (15:50)
--- NOTE | 2022-04-16 17:12 | RAD REPORT ---
EXAM DESCRIPTION: CT - Thorax Wo Con - 04/16/2022 4:51 pm CLINICAL HISTORY: Chest pain, nonspecific COMPARISON: Chest Abd Pelvis Wo Con dated 03/11/2020 FINDINGS: Chest Wall: No suspicious thyroid nodules or pathologic lymphadenopathy. Lungs: No acute abnormality. Pleura: No significant effusions or pneumothorax. Mediastinum/jeffry: No pathologic lymphadenopathy. Pulmonary arteries/Aorta: Limited evaluation without contrast. No aortic aneurysm. Heart: No significant pericardial effusion. Normal heart size. Multi-vessel coronary artery disease. Upper abdomen: No acute abnormality. Small hiatal hernia. Bones: No acute abnormality. All CT scans are performed using dose optimization technique as appropriate and may include automated exposure control or mA/KV adjustment according to patient size. IMPRESSION: No acute findings within the chest identified.
--- NOTE | 2022-04-16 18:32 | ER ---
Nurse's Notes [facility] Name: Beth López Age: 81 yrs Sex: Female : 1940 Arrival Date: 04/16/2022 Time: 14:27 Bed 8 Private MD: Diagnosis: Chest pain, unspecified Presentation: 04/16 14:44 Chief complaint: Patient states: chest pain that started yesterday around 1600 hours. mb8 Reports pain is squeezing and 9/10 that radiates to her left shoulder and into her back. Coronavirus screen: Vaccine status: Patient reports being unvaccinated. Ebola Screen: No symptoms or risks identified at this time. Initial Sepsis Screen: Does the patient meet any 2 criteria? No. Patient's initial sepsis screen is negative. Does the patient have a suspected source of infection? No. Patient's initial sepsis screen is negative. Risk Assessment: Do you want to hurt yourself or someone else? Patient reports no desire to harm self or others. Onset of symptoms was April 15, 2022 at 16:00. 14:44 Method Of Arrival: Ambulatory mb8 14:44 Acuity: TJ 3 mb8 Triage Assessment: 14:46 General: Appears uncomfortable, Behavior is calm, cooperative, appropriate for age. mb8 Pain: Complains of pain in chest Pain radiates to back and left arm Pain currently is 9 out of 10 on a pain scale. Quality of pain is described as squeezing. Cardiovascular: Reports chest pain. Historical: - Allergies: 14:45 No Known Allergies; mb8 - PMHx: 14:45 GERD; Hyperlipidemia; Hypertension; mb8 - Social history:: Smoking status: Patient denies any tobacco usage or history of. Screenin:48 Abuse screen: Denies threats or abuse. Denies injuries from another. Nutritional mb8 screening: No deficits noted. Tuberculosis screening: No symptoms or risk factors identified. Fall Risk None identified. Assessment: 14:46 Pain: Pain began 1 day ago. Cardiovascular: Chest pain is described as severe, Pain is mb8 9 out of 10 on a pain scale. quality is squeezing, is located in chest wall radiates to left arm(s) back began 1 day ago. 14:47 Respiratory: No deficits noted. Breath sounds are clear bilaterally. mb8 14:47 Cardiovascular: Capillary refill < 3 seconds Pulses are all present. are 3+ in right mb8 radial artery and left radial artery. 15:15 Reassessment: No changes from previously documented assessment. Patient and/or family mb8 updated on plan of care and expected duration. Pain level reassessed. Patient is alert, oriented x 3, equal unlabored respirations, skin warm/dry/pink. 17:04 Reassessment: No changes from previously documented assessment. Patient and/or family mb8 updated on plan of care and expected duration. Pain level reassessed. Patient is alert, oriented x 3, equal unlabored respirations, skin warm/dry/pink. Vital Signs: 14:44 BP 135 / 81; Pulse 50; Resp 20; Temp 98.1; Pulse Ox 99% ; Pain 9/10; mb8 15:14 BP 119 / 51; Pulse 50; Resp 16; Pulse Ox 97% ; mb8 15:49 BP 126 / 69; Pulse 53; Resp 17; Pulse Ox 98% ; Pain 4/10; mb8 16:18 BP 129 / 55; Pulse 50; Resp 17; Pulse Ox 98% ; mb8 17:01 BP 132 / 59; Pulse 50; Resp 14; Temp 97.6; Pulse Ox 99% ; mb8 17:39 BP 144 / 59; Pulse 52; Resp 16; Pulse Ox 99% ; mb8 Vitals: 14:48 Cardiac Rhythm Assessment Sinus man. mb8 16:18 Cardiac Rhythm Assessment Sinus man. mb8 17:39 Cardiac Rhythm Assessment Sinus man. mb8 ED Course: 14:27 Patient arrived in ED. mr 14:41 Geoffrey Khanna MD is Attending Physician. kdr 14:44 Domenico Zarate RN is Primary Nurse. mb8 14:45 Triage completed. mb8 14:46 Arm band placed on. EKG completed in triage. Results shown to MD. mb8 14:48 Patient has correct armband on for positive identification. Placed in gown. Bed in low mb8 position. Call light in reach. Side rails up X2. Client placed on continuous cardiac and pulse oximetry monitoring. NIBP monitoring applied. nuclear monitoring technician on. 14:48 No provider procedures requiring assistance completed. Initial lab(s) drawn, by , caleb sent to lab. Inserted saline lock: 18 gauge in left antecubital area, using aseptic technique. Blood collected. Patient maintains SpO2 saturation greater than 95% on room air. 14:49 Basic Metabolic Panel Sent. mb8 14:49 CBC with Diff Sent. mb8 14:49 Troponin HS Sent. mb8 15:05 XRAY Chest (1 view) In Process Unspecified. EDMS 16:53 Thorax Wo Con In Process Unspecified. EDMS 17:01 Patient moved back from CT. mb8 18:29 US Extremity Venous Unilateral Ltd In Process Unspecified. EDMS 19:18 IV discontinued, intact, bleeding controlled, No redness/swelling at site. Pressure mb8 dressing applied. Administered Medications: 15:48 Drug: Potassium Chloride 20 mEq Route: IV; Rate: calculated rate; Site: left mb8 antecubital; 19:00 Follow up: Response: No adverse reaction; IV Status: Completed infusion mb8 15:48 Drug: Potassium Effervescent Tablet 50 mEq Route: PO; mb8 17:04 Follow up: Response: No adverse reaction mb8 Medication: 14:47 VIS not applicable for this client. mb8 Outcome: 18:31 Discharge ordered by . kdr 19:17 Discharged to home ambulatory. mb8 19:17 Condition: stable 19:17 Discharge instructions given to patient, Instructed on discharge instructions, follow up and referral plans. no drinking with medication, no driving heavy equipment, medication usage, Demonstrated understanding of instructions, follow-up care, medications, Prescriptions given X 3. 19:19 Patient left the ED. mb8 Signatures: Dispatcher [employer] EDMS Geoffrey Khanna MD MD kdr Rivera, Mary mr Bates, Michael RN RN mb8 Corrections: (The following items were deleted from the chart) 16:28 16:18 Pulse 50bpm; Resp 17bpm; Pulse Ox 98%; mb8 mb8 17:03 17:01 Pulse 50bpm; Resp 14bpm; Pulse Ox 99%; Temp 97.6F; mb8 mb8 17:40 16:18 Cardiac Rhythm Assessment Sinus rhythm mb8 mb8
--- NOTE | 2022-04-16 18:33 | EDPHYS ---
Physician Documentation [facility] Name: Beth López Age: 81 yrs Sex: Female : 1940 Arrival Date: 04/16/2022 Time: 14:27 Bed 8 Private MD: ED Physician Geoffrey Khanna HPI: 04/16 16:31 This 81 yrs old Female presents to ER via Ambulatory with complaints of Chest Pain. kdr 16:31 The patient or guardian reports chest pain that is located primarily in the substernal kdr area, epigastric area. Onset: suddenly, yesterday. The pain radiates to the left shoulder, the left scapula. Associated signs and symptoms: Pertinent positives: abdominal pain, Pertinent negatives: dizziness, headache, lower extremity pain, lower extremity swelling, lightheadedness, nausea, near syncope, palpitations. The chest pain is described as aching, burning, dull. Duration: The patient or guardian reports a single episode, that is still ongoing, and unchanged. Modifying factors: The symptoms are alleviated by nothing. the symptoms are aggravated by breathing, cough, deep breath, movement, twisting torso, walking. Severity of pain: At its worst the pain was mild moderate just prior to arrival, in the emergency department the pain has improved mildly. The patient has not experienced similar symptoms in the past. The patient has not recently seen a physician. Historical: - Allergies: 14:45 No Known Allergies; mb8 - PMHx: 14:45 GERD; Hyperlipidemia; Hypertension; mb8 - Social history:: Smoking status: Patient denies any tobacco usage or history of. ROS: 16:31 Constitutional: Negative for fever, chills, and weight loss, Eyes: Negative for injury, kdr pain, redness, and discharge, ENT: Negative for injury, pain, and discharge, Neck: Negative for injury, pain, and swelling, Respiratory: Negative for shortness of breath, cough, wheezing, and pleuritic chest pain, Abdomen/GI: Negative for abdominal pain, nausea, vomiting, diarrhea, and constipation, Back: Negative for injury and pain, : Negative for injury, bleeding, discharge, and swelling, MS/Extremity: Negative for injury and deformity, Skin: Negative for injury, rash, and discoloration, Neuro: Negative for headache, weakness, numbness, tingling, and seizure activity. Psych: Negative for depression, anxiety, suicide ideation, homicidal ideation, and hallucinations, Allergy/Immunology: Negative for hives, rash, and allergies, Endocrine: Negative for neck swelling, polydipsia, polyuria, polyphagia, and marked weight changes, Hematologic/Lymphatic: Negative for swollen nodes, abnormal bleeding, and unusual bruising. 16:31 Cardiovascular: Positive for chest pain, Negative for edema, orthopnea, palpitations, paroxysmal nocturnal dyspnea. Exam: 16:31 Constitutional: This is a well developed, well nourished patient who is awake, alert, kdr and in no acute distress. Head/Face: Normocephalic, atraumatic. Eyes: Pupils equal round and reactive to light, extra-ocular motions intact. Lids and lashes normal. Conjunctiva and sclera are non-icteric and not injected. Cornea within normal limits. Periorbital areas with no swelling, redness, or edema. Neck: Trachea midline, no thyromegaly or masses palpated, and no cervical lymphadenopathy. Supple, full range of motion without nuchal rigidity, or vertebral point tenderness. No Meningismus. Chest/axilla: Normal chest wall appearance and motion. Nontender with no deformity. No lesions are appreciated. Patient complains of xiphoid/subxiphoid discomfort. She has tenderness there when I palpate. Otherwise her abdominal exam is negative Cardiovascular: Regular rate and rhythm with a normal S1 and S2. No gallops, murmurs, or rubs. Normal PMI, no JVD. No pulse deficits. Respiratory: Lungs have equal breath sounds bilaterally, clear to auscultation and percussion. No rales, rhonchi or wheezes noted. No increased work of breathing, no retractions or nasal flaring. Abdomen/GI: Soft, non-tender, with normal bowel sounds. No distension or tympany. No guarding or rebound. No evidence of tenderness throughout. Back: No spinal tenderness. No costovertebral tenderness. Full range of motion. Skin: Warm, dry with normal turgor. Normal color with no rashes, no lesions, and no evidence of cellulitis. MS/ Extremity: Pulses equal, no cyanosis. Neurovascular intact. Full, normal range of motion. Neuro: Awake and alert, GCS 15, oriented to person, place, time, and situation. Cranial nerves II-XII grossly intact. Motor strength 5/5 in all extremities. Sensory grossly intact. Cerebellar exam normal. Normal gait. Psych: Awake, alert, with orientation to person, place and time. Behavior, mood, and affect are within normal limits. 16:58 ECG was reviewed by the Attending Physician. kdr Vital Signs: 14:44 BP 135 / 81; Pulse 50; Resp 20; Temp 98.1; Pulse Ox 99% ; Pain 9/10; mb8 15:14 BP 119 / 51; Pulse 50; Resp 16; Pulse Ox 97% ; mb8 15:49 BP 126 / 69; Pulse 53; Resp 17; Pulse Ox 98% ; Pain 4/10; mb8 16:18 BP 129 / 55; Pulse 50; Resp 17; Pulse Ox 98% ; mb8 17:01 BP 132 / 59; Pulse 50; Resp 14; Temp 97.6; Pulse Ox 99% ; mb8 17:39 BP 144 / 59; Pulse 52; Resp 16; Pulse Ox 99% ; mb8 MDM: 18:31 Patient medically screened. kdr 18:54 Data reviewed: vital signs, nurses notes, lab test result(s), radiologic studies. kdr Counseling: I had a detailed discussion with the patient and/or guardian regarding: the historical points, exam findings, and any diagnostic results supporting the discharge/admit diagnosis, lab results, radiology results, the need for outpatient follow up. 04/16 14:41 Order name: Basic Metabolic Panel; Complete Time: 15:36 [facility] 04/16 14:41 Order name: CBC with Diff; Complete Time: 15:36 [facility] 04/16 14:41 Order name: Troponin HS; Complete Time: 15:36 [facility] 04/16 14:41 Order name: XRAY Chest (1 view); Complete Time: 15:36 [facility] 04/16 17:21 Order name: Troponin High Sensitivity; Complete Time: 18:54 [facility] 04/16 14:41 Order name: EKG; Complete Time: 14:42 [facility] 04/16 14:41 Order name: Cardiac monitoring; Complete Time: 14:49 [facility] 04/16 14:41 Order name: EKG - Nurse/Tech; Complete Time: 14:49 [facility] 04/16 14:41 Order name: IV Saline Lock; Complete Time: 14:49 [facility] 04/16 15:40 Order name: US Extremity Venous Unilateral Ltd; Complete Time: 18:54 kdr 04/16 16:02 Order name: Thorax Wo Con; Complete Time: 17:20 EDMS 04/16 14:41 Order name: Labs collected and sent; Complete Time: 14:49 kdr 04/16 14:41 Order name: O2 Per Protocol; Complete Time: 14:49 kdr 04/16 14:41 Order name: O2 Sat Monitoring; Complete Time: 14:49 kdr EC:58 Rate is 57 beats/min. Rhythm is regular, Sinus bradycardia with No ectopy. QRS [place] is kdr Normal. NV interval is normal. QRS interval is normal. QT interval is normal. Clinical impression: Sinus bradycardia. Administered Medications: 15:48 Drug: Potassium Chloride 20 mEq Route: IV; Rate: calculated rate; Site: left 8 antecubital; 19:00 Follow up: Response: No adverse reaction; IV Status: Completed infusion 8 15:48 Drug: Potassium Effervescent Tablet 50 mEq Route: PO; 8 17:04 Follow up: Response: No adverse reaction 8 Disposition Summary: 04/16/22 18:31 Discharge Ordered Location: Home kdr Problem: new kdr Symptoms: have improved kdr Condition: Stable kdr Diagnosis - Chest pain, unspecified kdr Followup: kdr - With: Private Physician - When: 2 - 3 days - Reason: If symptoms return, Further diagnostic work-up, Recheck today's complaints, Continuance of care, Re-evaluation by your physician Discharge Instructions: - Nonspecific Chest Pain, Adult, [id number] kdr - Discharge Summary Sheet mb8 Forms: - SBAR form mb8 - Medication Reconciliation Form kdr - Thank You Letter kdr Prescriptions: - Ibuprofen 600 mg Oral Tablet - take 1 tablet by ORAL route every 6 hours As needed take with food; 15 tablet; kdr Refills: 0, Product Selection Permitted - Prednisone 20 mg Oral Tablet - take 1 tablet by ORAL route once daily for 4 days; 4 tablet; Refills: 0, kdr Product Selection Permitted - Tramadol 50 mg Oral Tablet - take 1 tablet by ORAL route every 8 hours as needed at night for sleep; 10 kdr tablet; Refills: 0, Product Selection Permitted Signatures: Dispatcher [employer] EDMS Geoffrey Khanna MD MD kdr Domenico Zarate RN RN mb8 Corrections: (The following items were deleted from the chart) 16:02 15:44 Chest Angio+CT.RAD.BRZ ordered. EDMS EDMS
--- NOTE | 2022-04-16 18:41 | RAD REPORT ---
EXAM DESCRIPTION: US - Extremity Venous Uni Ltd - 04/16/2022 6:27 pm CLINICAL HISTORY: Left leg swelling COMPARISON: None. TECHNIQUE: Real-time sonographic evaluation of the left lower extremity deep venous system was perfo rmed. FINDINGS: Normal compressibility, flow augmentation, phasic flow and spontaneous flow is identified in the left lower extremity deep venous system. No intraluminal filling defects seen. IMPRESSION: No DVT in the left lower extremity.
[2022-04-16 21:23] VITALS: TEMP 97.6; O2SAT 99
[2022-04-16 21:25] VITALS: BP 144/59
--- NOTE | 2022-04-17 14:32 | EKG ---
Test Date: 2022-04-16 Test Time: 14:35:19 Dental Surgery Doctor: ROSA MEASUREMENT RESULTS: Intervals: Rate: 57 IA: 166 QRSD: 90 QT: 460 QTc: 447 [place]: P: 52 IA: 166 QRS: 34 T: 52 INTERPRETIVE STATEMENTS: Sinus bradycardia Otherwise normal ECG Compared to ECG 03/13/2020 22:58:02 No significant changes Electronically Signed On 04-17-22 14:30:20 CDT by Mateo Taylor
== END 2022-04-16 19:19 | disposition home or self-care (01) ==
LOC: ER 14:25
DX: R07.89 Other chest pain (principal); I10 Essential (primary) hypertension; K21.9 Gastro-esophageal reflux disease without esophagitis; E78.5 Hyperlipidemia, unspecified
CPT/HCPCS: 93005; 85025; 80048; 36415; 84484 ×2; 71250; 71045; 93971; J3480; J7050; 96365; 96366; 99285